=== PATIENT | female | born 1995 | race Caucasian/White ===

== ENCOUNTER 2018-07-14 18:06 | Inpatient (IN) | payer MEDICAID ==
[~2018-07-14] VITALS: Ht 157.5 cm; Wt 62.0 kg
[2018-07-14] MEDS ORDERED: ONDANSETRON 4 MG INJ IV STA (18:35)
[2018-07-14] MEDS ORDERED: SOD CHLORIDE 0.9% 1,000 ML IV STA (18:35)
[2018-07-14] MEDS ORDERED: ACETAMINOPHEN 325 MG TAB PO ONE (19:00)
[2018-07-14] MEDS ORDERED: NITROFURANTOIN (SR) 100 MG CAP PO ONE (20:30)
[2018-07-14] MEDS ORDERED: SOD CHLORIDE 0.9% 1,000 ML IV ONE (20:30)
[2018-07-14] MEDS ORDERED: PIPER-TAZO 3.375 GM IV (PMX) 100 ML IVPB ONE (22:00)
--- NOTE | 2018-07-14 22:29 | HP ---
Date/Time of Note Date/Time of Note DATE: 07/14/18 TIME: 22:28 Assessment/Plan VTE Prophylaxis SCD applied (from Nsg): Yes Pharmacological prophylaxis: NA/contraindicated Pharm contraindication: low risk/ambulating Lines/Catheters IV Catheter Type (from Nrsg): Saline Lock Assessment/Plan Hospital Course This is a 22-year-old female being admitted to the [facility] floor for: #1 Severe sepsis: Secondary to pneumonia and/or possible UTI/pyelonephritis. Chest x-ray shows patchy left lower lobe infiltrate. Patient does have some mild left-sided CVA tenderness however urinalysis is negative. At the current time will treat with Zosyn IV every 6 hours. Will await culture results. Trend lactic acid levels initial was 2.5 #2 metabolic acidosis: Secondary to underlying sepsis/pneumonia. IV fluid hydration at the current time, IV antibiotics. We will continue to monitor closely. #3 Mild transaminitis: Mild elevation in patient's liver function test. This could be secondary to . Right upper quadrant ultrasound: 1 cm polyp versus adherent stone within the gallbladder. No signs of any acute cholecystitis. Continue to monitor. #4 IUP:Single live intrauterine gestation of 17 weeks 1 day by ultrasound criteria. Continue prenatals, MEDIA PROFESSIONAL has been consulted. #5 DVT GI prophylaxis: SCDs, no GI prophylaxis indicated Further treatment strategy will be implemented as per the clinical course. Result Diagram: 07/14/18191107/14/181911 Results 24hrs Laboratory Tests Test 07/14/18 18:58 07/14/18 19:12 07/14/18 21:08 POC Venous Lactate 2.5 *H White Blood Count 17.9 H Red Blood Count 3.53 L Hemoglobin 11.3 L Hematocrit 32.4 L Mean Corpuscular Volume 91.8 Mean Corpuscular Hemoglobin 32.0 Mean Corpuscular 34.9 Hemoglobin Concent Red Cell Distribution Width 12.1 Platelet Count 237 Mean Platelet Volume 9.8 Immature Granulocytes % 1.300 H Neutrophils % 87.3 H Lymphocytes % 5.9 L Monocytes % 5.1 Eosinophils % 0.1 Basophils % 0.3 Nucleated Red Blood Cells % 0.0 Immature Granulocytes # 0.230 H Neutrophils # 15.6 H Lymphocytes # 1.1 Monocytes # 0.9 Eosinophils # 0.0 Basophils # 0.1 Nucleated Red Blood Cells # 0.0 Urine Color YELLOW Urine Clarity CLEAR Urine pH 8.0 Urine Specific [place] 1.015 Urine Ketones NEGATIVE Urine Nitrite NEGATIVE Urine Bilirubin NEGATIVE Urine Urobilinogen NEGATIVE Urine Leukocyte Esterase NEGATIVE Urine Hemoglobin NEGATIVE Urine Glucose NEGATIVE Urine Total Protein NEGATIVE Sodium Level 137 Potassium Level 3.4 L Chloride Level 109 Carbon Dioxide Level 17 L Anion Gap 11 Blood Urea Nitrogen 6 L Creatinine 0.53 Est Glomerular Filtrat > 60 Rate mL/min Glucose Level 98 Calcium Level 9.2 Total Bilirubin 0.2 Direct Bilirubin 0.00 Indirect Bilirubin 0.2 Aspartate Amino 60 H Transf (AST/SGOT) Alanine 88 H Aminotransferase (ALT/SGPT) Alkaline Phosphatase 75 Total Protein 6.6 Albumin 3.5 Globulin 3.10 Albumin/Globulin Ratio 1.12 Lipase 37 Blood Gas Specimen Source Blood arterial Arterial Blood Date Drawn 07/14/2018 9:27:00 PM Arterial Blood pH 7.534 H (Temp corrected) Arterial Blood pCO2 19.8 L (Temp correct) Arterial Blood pO2 119.6 H (Temp corrected) Arterial Blood HCO3 16.3 L Arterial Blood Base Excess -4.1 L Arterial Blood 98.3 H Oxygen Saturation Bijan Test ACCEPTAB Arterial Blood Gas Right Radial Puncture Site Arterial 0.3 Blood Carboxyhemoglobin Arterial Blood Methemoglobin 0.4 Blood Gas A-a O2 6.4 L Differential Oxyhemoglobin Percent 97.6 Blood Gas Temperature 37.0 Blood Gas Modality ROOM AIR FiO2 21.0 Blood Gas Notified Whom Irene Crockett Blood Gas Notified Time 07/14/2018 9:37:54 PM HPI/ROS Admit Date/Time Admit Date/Time Hx of Present Illness Chief complaint: fever, body pain times 1 day This is a 22-year-old woman complains of back pain, tactile fever, mild cough times 1 day. She states her back pain is mostly to the left flank and is nonex ertional nonradiating. She is 17 weeks by dates and previously normal ultrasound. She does report that she is also for a slight sore throat. She has had a cough. She denies any dysuria. She reported a temperature of approximately 100 at home. She denies any contractions or vaginal bleeding. no chest pain or shortness of breath, no headache or blurry vision, no neck pain or stiffness. Allergies: Cephalexin Medications: ROS Const: As per HPI Eyes : No pain discharge or redness or change in visual acuity ENT: As per HPI Respiratory: As per HPI Cardiovascular: No chest pain, palpitation, PND, or edema GI : no change in appetite, abdominal pain, nausea, vomiting, diarrhea, constipation, or change in the color his stool Genitourinary: As per HPI Musculoskeletal: No joint pain, back pain, neck pain, restricted range of motion in neck or joints Skin: No rash, bruising or hives Neuro: No headache, dizziness, syncope, seizure, focal weakness Endocrine: No polyuria, polydipsia, temperature intolerance Psych: No hallucination, depression, anxiety or suicidal ideation PMH/Family/Social Past Medical History Medical History: no pertinent history Coded Allergies: cephalexin (Verified Allergy, Unknown, 07/14/18) Past Surgical History Past Surgical Hx: no surgical history Family History Significant Family History: no pertinent family hx Social History Alcohol Use: none Smoking Status: Never smoker Drug Use: none Exam/Review of Systems Vital Signs Vitals Vital Signs Date Temp Pulse Resp B/P (MAP) Pulse Ox O2 O2 Flow FiO2 Time Delivery Rate 07/14/18 101.0 123 19 115/57 97 18:08 (76) Exam Exam General: Patient currently sitting in the bed in no acute distress HEENT: Atraumatic, normocephalic. The pupils are equal, round and reactive. Extraocular motor are intact Neck: Supple with full range of motion. No rigidity or meningismus Chest: Nontender Lungs: Clear to auscultation bilaterally no crackles rales or wheezing, nonlabored breathing, dry cough Heart: Normal S1-S2, Regular rhythm and rate. No murmur, S3, or S4 Abdomen: Soft , nontender, nondistended , bowel sounds are present. No guarding no rebound tenderness , No masses or organomegaly. No costovertebral temporal an gle mass Genitourinary: Mild left-sided CVA tenderness to palpation Extremities: Normal to inspection, no edema no cyanosis Neurologic: Normal mental status, speech normal, cranial nerves II through XII are intact, motor and sensory are intact, no focal weakness Additional Comments xzPROCEDURE: XR Chest. CLINICAL INDICATION: chest pain TECHNIQUE: Single frontal view of the chest was obtained COMPARISON: None FINDINGS: The heart and mediastinum are within normal limits. There is a mild patchy left lower lobe infiltrate. There is no pleural effusion or pneumothorax. There is a metallic structure overlying the right upper chest, possibly external to the patient. RPTAT: AA IMPRESSION: Metallic structure overlying the right upper chest, possibly external to the patient. Mild patchy left lower lobe infiltrate. .Josesito Phillips MD, MD Date Time Electronically viewed and signed by .Josesito Phillips MD, MD on 07/14/2018 21:34 .S/ CC: RANDY JOHNSON [id number] PROCEDURE: US Abdomen. CLINICAL INDICATION: Flank pain TECHNIQUE: Multiple real-time images were acquired of the patient's right upper quadrant abdomen and retroperitoneum utilizing a high resolution transducer. COMPARISON: None FINDINGS: The liver demonstrates normal echogenicity. The liver is normal in size and no focal solid lesions are seen. The liver measures 13.9 cm in length. The portal vein is patent with normal direction of flow. No intrahepatic biliary dilatation is seen. There is a 1 cm echogenic structure within the gallbladder, suspicious for a polyp versus adherent stone. There is no pericholecystic fluid or gallbladder wall thickening. The common bile duct measures 3 mm in maximal dimension. The pancreas is not well seen due to overlying bowel gas. No free fluid is identified. The right kidney is normal in size, and demonstrate normal echogenicity and cortical thickness. The right kidney measures 10 cm in long dimension. There is mild right-sided hydronephrosis. There are no kidney stones. The left kidney is normal in size with normal echogenicity and cortical thickness. The left kidney measures 11.2 cm in length. There is no evidence of left-sided hydronephrosis. RPTAT: AA IMPRESSION: 1 cm polyp versus adherent stone within the gallbladder. Mild right-sided hydronephrosis. .Josesito Phillips MD, MD Date Time Electronically viewed and signed by .Josesito Phillips MD, MD on 07/14/2018 21:13 .S/ CC: ROJELIO CURRY MD [id number] PROCEDURE: US OB. CLINICAL INDICATION: Flank pain TECHNIQUE: Multiple sonographic images of the pelvis and gravid uterus were obtained. The images were reviewed on a PACS workstation. COMPARISON: No prior studies are available for comparison. FINDINGS: Gestation: Single live intrauterine gestation. Cardiac activity: 154 beats per minute. Presentation: Vertex. Placenta: Location: Anterior. Appearance: No previa or abruption. MVP = 3.1 cm Measurements: BPD = 3.6 cm, 17 weeks and 0 days HC = 13.6 cm, 17 weeks and 1 day AC = 11.4 cm, 17 weeks and 1 day FL = 2.3 cm, 17 weeks and 0 days Gestational Age: AUA estimated gestational age: 17 weeks 1 day LMP estimated gestational age: 16 weeks 6 days AUA estimated date of delivery: 12/21/18 The EFW = 181 g, 59.7%ile based on LMP age. RPTAT: AA IMPRESSION: Single live intrauterine gestation of 17 weeks 1 day by ultrasound criteria. .Josesito Phillips MD, MD Date Time Electronically viewed and signed by .Josesito Phillips MD, on 07/14/2018 21:31 .S/ CC: ROJELIO CURRY MD [id number] RANDY JOHNSON Jul 14, 2018 22:29
[2018-07-14] MEDS ORDERED: POTASSIUM CHLORIDE (SR) 20 MEQ TAB PO STA (23:41)
[2018-07-15] MEDS ORDERED: NACL 0.9% 3 ML SYG IV SCH
[2018-07-15] MEDS ORDERED: ONDANSETRON 4 MG TAB PO PRN
[2018-07-15] MEDS ORDERED: BISACODYL (EC) 5 MG TAB PO PRN
--- NOTE | 2018-07-15 00:02 | ERD ---
ER Documentation Chief Complaint Chief Complaint fever with body pain x today 17 weeks HPI 22-year-old woman complains of back pain, tactile fever, mild cough times 1 day. She states her back pain is mostly to the left flank and is nonexertional nonradiating. She is 17 weeks by dates and previously normal ultra sound. She denies dysuria, no vaginal bleeding, no chest pain or shortness of breath, no headache or blurry vision, no neck pain or stiffness. ROS All systems reviewed and are negative except as per history of present illness. Allergies Allergies: Coded Allergies: cephalexin (Verified Allergy, Unknown, 07/14/18) PMhx/Soc Medical and Surgical Hx: pt denies Medical Hx, pt denies Surgical Hx Hx Alcohol Use: No Hx Substance Use: No Hx Tobacco Use: No Smoking Status: Never smoker FmHx Family History: No diabetes Physical Exam Vitals Vital Signs Date Temp Pulse Resp B/P (MAP) Pulse Ox O2 O2 Flow FiO2 Time Delivery Rate 07/14/18 99.9 105 18 103/64 100 Room Air 23:44 (77) 07/14/18 99.9 86 18 93/56 (68) 100 Room Air 21:54 07/14/18 101.0 123 19 115/57 97 18:08 (76) Physical Exam GENERAL: Well-developed, well-nourished, febrile HEENT: Moist mucous membranes, pink conjunctiva, no cervical spine tenderness or step-off deformities, no goiter, no jaundice or icterus, extraocular movements intact without pain. No submandibular induration, and no pharyngeal erythema NEURO: Alert and oriented 3, cranial nerves II through XII intact bilaterally, pupils equal round reactive to light, no focal deficits or facial asymmetry, sensation intact distally Strength 5/5 in upper and lower extremities bilaterally CARDIAC: Tachycardic, no murmurs rubs or gallops LUNGS: Clear bilaterally no wheezing crackles or stridor ABDOMEN: Soft nontender, no guarding, no rigidity, no rebound, no psoas sign no obturator sign. SKIN: Warm and dry to touch, no abrasions, contusions, or hematomas, no lacerations, no ecchymosis, no target lesions, and without ulcers EXTREMITIES: No clubbing cyanosis or edema, calves are bilaterally symmetrical, no Homans sign, no popliteal cord sign. Distal pulses equal and bilateral PSYCH: Normal affect without agitation or irritability Result Diagram: 07/14/18191107/14/181911 Results 24 hrs Laboratory Tests Test 07/14/18 18:58 07/14/18 19:12 07/14/18 21:08 07/14/18 22:48 POC Venous 2.5 mmol/L Lactate White Blood 17.9 10^3/ul Count Red Blood Count 3.53 10^6/ul Hemoglobin 11.3 g/dl Hematocrit 32.4 % Mean Corpuscular 91.8 fl Volume Mean Corpuscular 32.0 pg Hemoglobin Mean Corpuscular 34.9 g/dl Hemoglobin Sarai nt Red Cell 12.1 % Distribution Width Platelet Count 237 10^3/UL Mean Platelet 9.8 fl Volume Immature 1.300 % Granulocytes % Neutrophils % 87.3 % Lymphocytes % 5.9 % Monocytes % 5.1 % Eosinophils % 0.1 % Basophils % 0.3 % Nucleated Red 0.0 /100WBC Blood Cells % Immature 0.230 10^3/ul Granulocytes # Neutrophils # 15.6 10^3/ul Lymphocytes # 1.1 10^3/ul Monocytes # 0.9 10^3/ul Eosinophils # 0.0 10^3/ul Basophils # 0.1 10^3/ul Nucleated Red 0.0 10^3/ul Blood Cells # Urine Color YELLOW Urine Clarity CLEAR Urine pH 8.0 Urine Specific 1.015 [place] Urine Ketones NEGATIVE mg/dL Urine Nitrite NEGATIVE mg/dL Urine Bilirubin NEGATIVE mg/dL Urine NEGATIVE mg/dL Urobilinogen Urine Leukocyte NEGATIVE Janae/ul Esterase Urine Hemoglobin NEGATIVE mg/dL Urine Glucose NEGATIVE mg/dL Urine Total NEGATIVE mg/dl Protein Sodium Level 137 mmol/L Potassium Level 3.4 mmol/L Chloride Level 109 mmol/L Carbon Dioxide 17 mmol/L Level Anion Gap 11 Blood Urea 6 mg/dl Nitrogen Creatinine 0.53 mg/dl Est Glomerular > 60 mL/min Filtrat Rate mL/min Glucose Level 98 mg/dl Calcium Level 9.2 mg/dl Total Bilirubin 0.2 mg/dl Direct Bilirubin 0.00 mg/dl Indirect 0.2 mg/dl Bilirubin Aspartate Amino 60 IU/L Transf (AST/SGOT ) Alanine 88 IU/L Aminotransferase (ALT/SGPT) Alkaline 75 IU/L Phosphatase Total Protein 6.6 g/dl Albumin 3.5 g/dl Globulin 3.10 g/dl Albumin/Globulin 1.12 Ratio Lipase 37 U/L Blood Gas Blood arterial Specimen Source Arterial Blood 07/14/2018 9:27: Date Drawn 00 PM Arterial Blood 7.534 pH (Temp corrected) Arterial Blood 19.8 mmhg pCO2 (Temp correct) Arterial Blood 119.6 mmHG pO2 (Temp corrected) Arterial Blood 16.3 mmol/L HCO3 Arterial Blood -4.1 mmol/L Base Excess Arterial Blood 98.3 mmHG Oxygen Saturatio n Bijan Test ACCEPTAB Arterial Blood Right Radial Gas Puncture Site Arterial 0.3 % Blood Carboxyhem oglobin Arterial Blood 0.4 % Methemoglobin Blood Gas A-a O2 6.4 mmHg Differential Oxyhemoglobin 97.6 % Percent Blood Gas 37.0 C Temperature Blood Gas ROOM AIR Modality FiO2 21.0 % Blood Gas [facility] Notified Whom hchi Blood Gas 07/14/2018 9:37: Notified Time 54 PM Lactic Acid 1.1 mmol/L Level Current Medications Medications Dose Sig/Asim Start Time Status Last (Trade) Ordered Route PRN Stop Time Admin Dose Reason Admin 650 mg ONCE ONCE 07/14/18 DC 07/14/18 Acetaminophen PO 19:00 19:33 (Tylenol 07/14/18 19:01 Tab) Sodium 1,000 ml @ Q1H STAT 07/14/18 DC 07/14/18 Chloride 1,000 mls/hr IV 18:35 19:33 07/14/18 19:34 Ondansetron 4 mg ONCE STAT 07/14/18 DC HCl (Zofran IV 18:35 Inj) 07/14/18 18:36 Sodium 1,000 ml @ Q30M ONCE 07/14/18 DC 07/14/18 Chloride 2,000 mls/hr IV 20:30 20:30 07/14/18 20:59 100 mg ONCE ONCE 07/14/18 DC 07/14/18 Nitrofurantoi PO 20:30 20:30 n 07/14/18 20:31 Macrocrystals (Macrobid) Piperacillin 100 ml @ ONCE ONCE 07/14/18 DC 07/14/18 Sod/ 200 mls/hr IVPB 22:00 22:16 Tazobactam 07/14/18 22:29 Sod Potassium 40 meq ONCE STAT 07/14/18 DC Chloride PO 23:41 (Klor-Con 20) 07/14/18 23:45 IV Flush 3 ml PER 07/15/18 (NS 3 ml) PROTOCOL IV 00:00 Ondansetron 4 mg Q6H PRN 07/15/18 HCl (Zofran PO 00:00 Tab) NAUSEA/VOMITI NG 650 mg Q6H PRN 07/15/18 Acetaminophen PO .PAIN 1-3 00:00 (Tylenol OR TEMP Tab) Docusate 100 mg Q12H PRN 07/15/18 Sodium PO 00:00 (Colace) .CONSTIPATION Bisacodyl 5 mg DAILY PRN 07/15/18 (Dulcolax) PO 00:00 .CONSTIPATION Prenat 1 tab DAILY PO 07/15/18 Multivit/ 00:00 [place]/Iron/Fo lic Ac () Procedures/MDM IV line was established patient was placed on quality assurance monitor body rhythm strip revealed a sinus tachycardia at 120 bpm with upright P and T waves. Patient was febrile. Blood and urine cultures have been ordered results are pending I will follow-up. I administered 3 L normal saline IV, acetaminophen 650 mg p.o., Zofran 4 mg IV, initially treated the patient with nitrofurantoin 100 mg p.o. x1 pending UA CBC reveals a leukocytosis at 18, electrolytes were unremarkable, liver function tests normal, urinalysis negative for infection Patient's infectious symptoms have not stabilized and the patient is at risk of rapid decompensation. The patient will be admitted for careful hydration, antibiotic therapy, and infectious source control. Obstetric ultrasound was unremarkable revealing a 17-week IUP. Gallbladder ultrasound was performed revealing a polyp versus a stone although no signs of cholecystitis. 1 view chest x-ray was performed revealing early patchy left lower lobe infiltrate SEVERE SEPSIS CRITERIA: Infectious source: Nonspecific (possibly pneumonia) End organ damage indicated by: None SEPSIS MANAGEMENT Time of recognition of sepsis: Upon arrival. Time of recognition of severe sepsis: No severe sepsis at this time. Time of recognition of septic shock: No septic shock at this time. 3 HOUR BUNDLE Blood cultures x 2 before broad-spectrum antibiotics: Yes 30 ml/kg NS bolus completed Initial lactate 2.5 Repeat lactate 1.1 SEPTIC SHOCK ASSESSMENT: No lactic acid > 4.0 No persistent hypotension (SBP < 90 or 40 mmHg drop, MAP < 65) despite 30 mL/kg IV fluid bolus VOLUME REASSESSMENT FOR SEPTIC SHOCK: Reevaluation Time: 2300 Temp 99 F, pulse 100 bpm, respiratory rate 18 breaths/min, BP 120/80 Heart tachycardic and regular Lungs no crackles Skin warm & dry Cap Refill less than 2 seconds Peripheral pulses radially present PERSISTENT HYPOTENSION TREATMENT: Comfort care no Central line not Required Vasopressor started not required I considered further perfusion assessment with CVP measurement, SCVO2, bedside ultrasound volume assessment, passive leg raise, trial of further fluid bolus. And proceeded with 30 ml/kg fluid bolus of NSS, broad spectrum antibiotics, and admission. CRITICAL CARE: Critical care time 35 minutes, this was time separate from other billable procedures. Emergent fluid management while maintaining close respiratory support. Provision of immediate and broad-spectrum antibiotic therapy. Simultaneous assessment for possible sources in order to direct targeted therapy. Consideration for invasive and chemical support to prevent cardiopulmonary collapse. Critical care time is independent of procedures performed. Accepting Care Team: Current data and ongoing care discussed. Time: Time of admission Primary Provider: Hospitalist Consulting: Deferred to hospitalist team Outstanding Data: none Departure Diagnosis: Primary Impression: Second trimester Additional Impression: Sepsis Sepsis type: sepsis due to unspecified organism Qualified Codes: A41.9 - S epsis, unspecified organism Condition: ROJELIO Bland MD Jul 15, 2018 00:02
[2018-07-15 00:30] VITALS: BP 100/50; PULSE 96; RESP 16; Ht 157.5 cm; Wt 62.0 kg
[2018-07-15] MEDS: DOCUSATE SODIUM 100 MG CAP PO PRN ×2 (00:47→20:40)
[2018-07-15] MEDS: PRENATAL VITAMIN PO SCH ×2 (02:00→08:14)
[2018-07-15 02:30] VITALS: BP 109/80; PULSE 116; RESP 16
[2018-07-15] MEDS: ACETAMINOPHEN 325 MG TAB PO PRN ×2 (04:43→20:44)
[2018-07-15 07:47] VITALS: BP 97/54; PULSE 84; RESP 18
[2018-07-15] MEDS ORDERED: CEFTRIAXONE 1 GM INJ IVPB ONE (15:30)
[2018-07-15 16:06] VITALS: BP 131/55; PULSE 84; RESP 18
[2018-07-15] MEDS: DEXTROSE 5%-0.45% NACL 1,000 ML IV SCH (16:10)
[2018-07-15] MEDS: PIPER-TAZO 3.375 GM IV (PMX) 100 ML IVPB SCH ×2 (16:45→23:03)
--- NOTE | 2018-07-15 18:37 | PN ---
Date/Time of Note Date/Time of Note DATE: 07/15/18 TIME: 15:26 Assessment/Plan VTE Prophylaxis Risk score (from Nsg)>0 risk: 0 SCD applied (from Ns): Yes Pharmacological prophylaxis: NA/contraindicated Pharm contraindication: low risk/ambulating Lines/Catheters IV Catheter Type (from Nrsg): Saline Lock Assessment/Plan Hospital Course S: feels better, but still lethargic and having mild flank pain O : General: A&O x3, answering questions appropriately HEENT: NC/ AT. PERRL. EOM intact Neck: supple CVS: S1, S2, RRR. no murmurs. no pain on chest wall palpation Lungs: CTA b/l. no wheezing or rhonchi Abd: soft, nontender, +BS, L flank just sore Ext: moving all extremities skin: no rashes assessment and plan: 22-year-old female who presented with fever, mild cough , L sided flank vs back pain and headaches managed as follows: #1 Severe sepsis: -2/2 RTI, I think PNA is less likely and URI more likely -continue abx for now -rapid strep, influenza and urine culture negative so far -patient has cephalosporin allergy and floroquinolones and aminoglycosides are not exactly safe in , so will continue zosyn #2 Mild metabolic acidosis: improved -Secondary to underlying sepsis/pneumonia. -continue IV fluid hydration at the current time, IV antibiotics. -We will continue to monitor closely. #3 Mild transaminitis: -Mild elevation in patient's liver function test. -Secondary to . -Right upper quadrant ultrasound: 1 cm polyp versus adherent stone within the gallbladder. No signs of any acute cholecystitis. Continue to monitor. #4 IUP: -Single live intrauterine gestation of 17 weeks 1 day by ultrasound criteria. Continue prenatals, BEE PRODUCER has been consulted for BID monitoring #5 DVT GI prophylaxis: SCDs, no GI prophylaxis indicated Dispo: -continue inhouse monitoring for now and resume abx, possible d/c in am if she remains fever free. Result Diagram: 07/15/18 0435 07/15/18 0435 Results 24hrs Laboratory Tests Test 07/14/18 18:58 07/14/18 19:12 07/14/18 21:08 07/14/18 22:48 POC Venous 2.5 *H Lactate White Blood Count 17.9 H Red Blood Count 3.53 L Hemoglobin 11.3 L Hematocrit 32.4 L Mean Corpuscular 91.8 Volume Mean Corpuscular 32.0 Hemoglobin Mean Corpuscular 34.9 Hemoglobin Concen t Red Cell 12.1 Distribution Width Platelet Count 237 Mean Platelet 9.8 Volume Immature 1.300 H Granulocytes % Neutrophils % 87.3 H Lymphocytes % 5.9 L Monocytes % 5.1 Eosinophils % 0.1 Basophils % 0.3 Nucleated Red 0.0 Blood Cells % Immature 0.230 H Granulocytes # Neutrophils # 15.6 H Lymphocytes # 1.1 Monocytes # 0.9 Eosinophils # 0.0 Basophils # 0.1 Nucleated Red 0.0 Blood Cells # Urine Color YELLOW Urine Clarity CLEAR Urine pH 8.0 Urine Specific 1.015 [place] Urine Ketones NEGATIVE Urine Nitrite NEGATIVE Urine Bilirubin NEGATIVE Urine NEGATIVE Urobilinogen Urine Leukocyte NEGATIVE Esterase Urine Hemoglobin NEGATIVE Urine Glucose NEGATIVE Urine Total NEGATIVE Protein Sodium Level 137 Potassium Level 3.4 L Chloride Level 109 Carbon Dioxide 17 L Level Anion Gap 11 Blood Urea 6 L Nitrogen Creatinine 0.53 Est Glomerular > 60 Filtrat Rate mL/min Glucose Level 98 Calcium Level 9.2 Total Bilirubin 0.2 Direct Bilirubin 0.00 Indirect 0.2 Bilirubin Aspartate Amino 60 H Transf (AST/SGOT) Alanine 88 H Aminotransferase (ALT/SGPT) Alkaline 75 Phosphatase Total Protein 6.6 Albumin 3.5 Globulin 3.10 Albumin/Globulin 1.12 Ratio Lipase 37 Blood Gas Blood arterial Specimen Source Arterial Blood 07/14/2018 9:27:0 Date Drawn 0 PM Arterial Blood pH 7.534 H (Temp corrected) Arterial Blood 19.8 L pCO2 (Temp correct) Arterial Blood 119.6 H pO2 (Temp corrected) Arterial Blood 16.3 L HCO3 Arterial Blood -4.1 L Base Excess Arterial Blood 98.3 H Oxygen Saturation [place] Test ACCEPTAB Arterial Blood Right Radial Gas Puncture Site Arterial 0.3 Blood Carboxyhemo globin Arterial Blood 0.4 Methemoglobin Blood Gas A-a O2 6.4 L Differential Oxyhemoglobin 97.6 Percent Blood Gas 37.0 Temperature Blood Gas ROOM AIR Modality FiO2 21.0 Blood Gas Irene Villarreal Notified Whom chi Blood Gas 07/14/2018 9:37:5 Notified Time 4 PM Lactic Acid Level 1.1 Test 07/15/18 04:35 White Blood Count 15.8 H Red Blood Count 3.44 L Hemoglobin 11.0 L Hematocrit 32.3 L Mean Corpuscular 93.9 Volume Mean Corpuscular 32.0 Hemoglobin Mean Corpuscular 34.1 Hemoglobin Concen t Red Cell 12.1 Distribution Width Platelet Count 224 Mean Platelet 9.9 Volume Immature 1.600 H Granulocytes % Neutrophils % 83.8 H Lymphocytes % 7.6 L Monocytes % 6.3 Eosinophils % 0.4 Basophils % 0.3 Nucleated Red 0.0 Blood Cells % Immature 0.260 H Granulocytes # Neutrophils # 13.3 H Lymphocytes # 1.2 Monocytes # 1.0 H Eosinophils # 0.1 Basophils # 0.1 Nucleated Red 0.0 Blood Cells # Sodium Level 139 Potassium Level 3.8 Chloride Level 111 H Carbon Dioxide 19 L Level Anion Gap 9 Blood Urea 3 L Nitrogen Creatinine 0.46 Est Glomerular > 60 Filtrat Rate mL/min Glucose Level 90 Hemoglobin A1c 4.6 Calcium Level 8.5 Magnesium Level 1.8 Total Bilirubin 0.1 L Direct Bilirubin 0.00 Indirect 0.1 Bilirubin Aspartate Amino 48 H Transf (AST/SGOT) Alanine 85 H Aminotransferase (ALT/SGPT) Alkaline 72 Phosphatase Total Protein 6.2 Albumin 3.0 L Globulin 3.20 Albumin/Globulin 0.93 Ratio Triglycerides 76 Level Cholesterol Level 160 LDL Cholesterol, 84 Calculated HDL Cholesterol 61 Cholesterol/HDL 2.6 Ratio Thyroid 0.677 Stimulating Hormone (TSH) Beta HCG, 075[address].0 Quantitative Exam/Review of Systems Exam Vitals Vital Signs Date Temp Pulse Resp B/P (MAP) Pulse Ox O2 O2 Flow FiO2 Time Delivery Rate 07/15/18 98.3 84 18 131/55 96 16:06 (80) 07/14/18 Room Air 23:44 Intake and Output 07/14/18 07/14/18 07/15/18 1515:00 23:00 07:00 IntakeIntake Total 2500 ml BalanceBalance 2500 ml Results Results 24hrs Laboratory Tests Test 07/14/18 18:58 07/14/18 19:12 07/14/18 21:08 07/14/18 22:48 POC Venous 2.5 *H Lactate White Blood Count 17.9 H Red Blood Count 3.53 L Hemoglobin 11.3 L Hematocrit 32.4 L Mean Corpuscular 91.8 Volume Mean Corpuscular 32.0 Hemoglobin Mean Corpuscular 34.9 Hemoglobin Concen t Red Cell 12.1 Distribution Width Platelet Count 237 Mean Platelet 9.8 Volume Immature 1.300 H Granulocytes % Neutrophils % 87.3 H Lymphocytes % 5.9 L Monocytes % 5.1 Eosinophils % 0.1 Basophils % 0.3 Nucleated Red 0.0 Blood Cells % Immature 0.230 H Granulocytes # Neutrophils # 15.6 H Lymphocytes # 1.1 Monocytes # 0.9 Eosinophils # 0.0 Basophils # 0.1 Nucleated Red 0.0 Blood Cells # Urine Color YELLOW Urine Clarity CLEAR Urine pH 8.0 Urine Specific 1.015 [place] Urine Ketones NEGATIVE Urine Nitrite NEGATIVE Urine Bilirubin NEGATIVE Urine NEGATIVE Urobilinogen Urine Leukocyte NEGATIVE Esterase Urine Hemoglobin NEGATIVE Urine Glucose NEGATIVE Urine Total NEGATIVE Protein Sodium Level 137 Potassium Level 3.4 L Chloride Level 109 Carbon Dioxide 17 L Level Anion Gap 11 Blood Urea 6 L Nitrogen Creatinine 0.53 Est Glomerular > 60 Filtrat Rate mL/min Glucose Level 98 Calcium Level 9.2 Total Bilirubin 0.2 Direct Bilirubin 0.00 Indirect 0.2 Bilirubin Aspartate Amino 60 H Transf (AST/SGOT) Alanine 88 H Aminotransferase (ALT/SGPT) Alkaline 75 Phosphatase Total Protein 6.6 Albumin 3.5 Globulin 3.10 Albumin/Globulin 1.12 Ratio Lipase 37 Blood Gas Blood arterial Specimen Source Arterial Blood 07/14/2018 9:27:0 Date Drawn 0 PM Arterial Blood pH 7.534 H (Temp corrected) Arterial Blood 19.8 L pCO2 (Temp correct) Arterial Blood 119.6 H pO2 (Temp corrected) Arterial Blood 16.3 L HCO3 Arterial Blood -4.1 L Base Excess Arterial Blood 98.3 H Oxygen Saturation [place] Test ACCEPTAB Arterial Blood Right Radial Gas Puncture Site Arterial 0.3 Blood Carboxyhemo globin Arterial Blood 0.4 Methemoglobin Blood Gas A-a O2 6.4 L Differential Oxyhemoglobin 97.6 Percent Blood Gas 37.0 Temperature Blood Gas ROOM AIR Modality FiO2 21.0 Blood Gas Irene Villarreal Notified Whom chi Blood Gas 07/14/2018 9:37:5 Notified Time 4 PM Lactic Acid Level 1.1 Test 07/15/18 04:35 White Blood Count 15.8 H Red Blood Count 3.44 L Hemoglobin 11.0 L Hematocrit 32.3 L Mean Corpuscular 93.9 Volume Mean Corpuscular 32.0 Hemoglobin Mean Corpuscular 34.1 Hemoglobin Concen t Red Cell 12.1 Distribution Width Platelet Count 224 Mean Platelet 9.9 Volume Immature 1.600 H Granulocytes % Neutrophils % 83.8 H Lymphocytes % 7.6 L Monocytes % 6.3 Eosinophils % 0.4 Basophils % 0.3 Nucleated Red 0.0 Blood Cells % Immature 0.260 H Granulocytes # Neutrophils # 13.3 H Lymphocytes # 1.2 Monocytes # 1.0 H Eosinophils # 0.1 Basophils # 0.1 Nucleated Red 0.0 Blood Cells # Sodium Level 139 Potassium Level 3.8 Chloride Level 111 H Carbon Dioxide 19 L Level Anion Gap 9 Blood Urea 3 L Nitrogen Creatinine 0.46 Est Glomerular > 60 Filtrat Rate mL/min Glucose Level 90 Hemoglobin A1c 4.6 Calcium Level 8.5 Magnesium Level 1.8 Total Bilirubin 0.1 L Direct Bilirubin 0.00 Indirect 0.1 Bilirubin Aspartate Amino 48 H Transf (AST/SGOT) Alanine 85 H Aminotransferase (ALT/SGPT) Alkaline 72 Phosphatase Total Protein 6.2 Albumin 3.0 L Globulin 3.20 Albumin/Globulin 0.93 Ratio Triglycerides 76 Level Cholesterol Level 160 LDL Cholesterol, 84 Calculated HDL Cholesterol 61 Cholesterol/HDL 2.6 Ratio Thyroid 0.677 Stimulating Hormone (TSH) Beta HCG, [address].0 Quantitative Medications Medication Current Medications IV Flush (NS 3 ml) 3 ml PER PROTOCOL IV Last administered on 07/15/18at 00:45; Admin Dose 3 ML; Start 07/15/18 at 00:00 Ondansetron HCl (Zofran Tab) 4 mg Q6H PRN PO NAUSEA/VOMITING; Start 07/15/18 at 00:00 Acetaminophen (Tylenol Tab) 650 mg Q6H PRN PO .PAIN 1-3 OR TEMP Last administered on 07/15/18at 04:43; Admin Dose 650 MG; Start 07/15/18 at 00:00 Docusate Sodium (Colace) 100 mg Q12H PRN PO .CONSTIPATION Last administered on 07/15/18at 00:47; Admin Dose 100 MG; Start 07/15/18 at 00:00 Bisacodyl (Dulcolax) 5 mg DAILY PRN PO .CONSTIPATION; Start 07/15/18 at 00:00 Prenat Multivit/ [place]/Iron/Folic Ac () 1 tab DAILY PO Last administered on 07/15/18at 08:14; Admin Dose 1 TAB; Start 07/15/18 at 00:00 Dextrose/Sodium Chloride 1,000 ml @ 75 mls/hr [id number] IV Last administered on 07/15/18at 16:10; Admin Dose 75 MLS/HR; Start 07/15/18 at 15:30 Piperacillin Sod/ Tazobactam Sod 100 ml @ 200 mls/hr Q8 IVPB Last administered on 07/15/18at 16:45; Admin Dose 200 MLS/HR; Start 07/15/18 at 16:30 MECCA LEVIN Jul 15, 2018 18:37
[2018-07-15 20:02] VITALS: BP 87/54; PULSE 75; RESP 18
[2018-07-15 20:40] VITALS: BP 99/56; PULSE 68
[2018-07-16 02:26] VITALS: BP 85/52; PULSE 66; RESP 18
[2018-07-16 02:40] VITALS: BP 92/53; PULSE 64
[2018-07-16] MEDS: DEXTROSE 5%-0.45% NACL 1,000 ML IV SCH ×2 (04:50→06:07)
[2018-07-16] MEDS: PIPER-TAZO 3.375 GM IV (PMX) 100 ML IVPB SCH ×2 (06:04→13:04)
[2018-07-16 07:21] VITALS: BP 92/56; PULSE 91; RESP 20
[2018-07-16] MEDS: PRENATAL VITAMIN PO SCH (08:08)
--- NOTE | 2018-07-16 09:49 | DS ---
Date/Time of Note Date/Time of Note DATE: 07/16/18 TIME: 09:48 Discharge Summary Admission/Discharge Info Admit Date/Time Jul 14, 2018 at 23:17 Discharge Date/Time Discharge Diagnosis 22-year-old female who presented with fever, mild cough , L sided flank vs back pain and headaches managed as follows: #1 Severe sepsis: -2/2 RTI, #2 Mild metabolic acidosis: resolved #3 Mild transaminitis: -Mild elevation in patient's liver function test. -Secondary to . -Right upper quadrant ultrasound: 1 cm polyp versus adherent stone within the gallbladder. No signs of any acute cholecystitis. Continue to monitor. #4 IUP: -Single live intrauterine gestation of 17 weeks 1 day by ultrasound criteria. Continue prenatals, . Patient Condition: Stable Consults Obs/ Gynecology: Laborist . Hospital Course 22 yo F who presented with fever, cough and back pain on the left side versus flank pain who was managed for sepsis. This is likely secondary to an upper respiratory infection and had pain from coughing. She was also found to be with mild metabolic acidosis secondary to sepsis. She was admitted and treated with empiric antibiotics and IV fluids and has done very well. She was found to have a mild transaminitis and a gallbladder ultrasound did show a polyp versus an adherent stone in her gallbladder but she had no signs of acute cholecystitis. Transaminase levels remained steady making it more likely that it was secondary to and less likely secondary to choledocholithiasis. Also her bilirubin levels were normal and her alkaline phosphatase levels were also normal. At this time she has been evaluated by myself and is stable for discharge. Her baby was monitored twice a day throughout her hospitalization without incident. Home Meds Active Scripts Amoxicillin/Potassium Clav (Amox-Clav 875-125 mg Tablet) 875-125 mg Tab, 1 TAB PO BID for 3 Days, #6 TAB Prov:BRIANA LEVINIMTIAZ M. 07/16/18 Docusate Sodium* (Colace*) 100 Mg Capsule, 100 MG PO BID, #60 CAP 3 Refills Prov:POONAMBRIANA AlonzoJASPERO M. 07/16/18 Vit No.130/Iron/FA ( Tablet) 1 Each Tablet, 1 TAB PO DAILY, #30 TAB 6 Refills Prov:BRIANA LEVINIMTIAZ Boyd. 07/16/18 Follow-up Plan routine care . Primary Care Provider Not On Staff Doctor Time spent on discharge: > 30 minutes Pending Labs Laboratory Tests Test 07/16/18 04:47 White Blood Count 9.5 10^3/ul (4.8-10.8) Red Blood Count 3.29 10^6/ul (4.20-5.40) Hemoglobin 10.5 g/dl (12.0-16.0) Hematocrit 31.3 % (37.0-47.0) Mean Corpuscular Volume 95.1 fl (82.0-101.0) Mean Corpuscular Hemoglobin 31.9 pg (29.0-33.0) Mean Corpuscular Hemoglobin Concent 33.5 g/dl (32.0-37.0) Red Cell Distribution Width 12.3 % (11.5-14.5) Platelet Count 232 10^3/UL (140-415) Mean Platelet Volume 9.9 fl (7.4-10.4) Immature Granulocytes % 3.500 % (0.001-0.429) Neutrophils % 66.8 % (39.0-77.0) Lymphocytes % 19.5 % (15.0-51.0) Monocytes % 7.4 % (0.0-11.0) Eosinophils % 2.2 % (0.0-7.0) Basophils % 0.6 % (0.0-2.0) Nucleated Red Blood Cells % 0.0 /100WBC (0.0-0.0) Immature Granulocytes # 0.330 10^3/ul (0.0-0.031) Neutrophils # 6.4 10^3/ul (1.6-7.5) Lymphocytes # 1.9 10^3/ul (0.8-2.9) Monocytes # 0.7 10^3/ul (0.3-0.9) Eosinophils # 0.2 10^3/ul (0.0-0.5) Basophils # 0.1 10^3/ul (0.0-0.1) Nucleated Red Blood Cells # 0.0 10^3/ul (0.0-0.0) Sodium Level 139 mmol/L (135-144) Potassium Level 3.6 mmol/L (3.5-5.1) Chloride Level 111 mmol/L (97-110) Carbon Dioxide Level 23 mmol/L (21-31) Anion Gap 5 (5-13) Blood Urea Nitrogen 5 mg/dl (7-20) Creatinine 0.50 mg/dl (0.44-1.00) Est Glomerular Filtrat Rate mL/min > 60 mL/min (>60) Glucose Level 86 mg/dl (70-220) Calcium Level 8.5 mg/dl (8.4-10.2) MECCA LEVIN Jul 16, 2018 09:49
[2018-07-16] MEDS ORDERED: AMOX1TAB10 PO (09:54)
[2018-07-16] MEDS ORDERED: PREN1TAB71 PO (09:54)
[2018-07-16] MEDS ORDERED: DOCU-144 PO (09:54)
--- NOTE | 2018-07-16 09:55 | PDOCDIS ---
Discharge Instructions DIAGNOSIS Discharge Diagnosis 22-year-old female who presented with fever, mild cough , L sided flank vs back pain and headaches managed as follows: #1 Severe sepsis: -2/2 RTI, #2 Mild metabolic acidosis: resolved #3 Mild transaminitis: -Mild elevation in patient's liver function test. -Secondary to . -Right upper quadrant ultrasound: 1 cm polyp versus adherent stone within the gallbladder. No signs of any acute cholecystitis. Continue to monitor. #4 IUP: -Single live intrauterine gestation of 17 weeks 1 day by ultrasound criteria. Continue prenatals, . CONDITION [id number] Patient Condition: [id number] Stable HOME CARE INSTRUCTIONS: [id number] Diet Instructions: [id number] Regular ACTIVITY: [id number] Activity Restrictions: [id number] Slowly Increase Activity Rest between Activity FOLLOW UP/APPOINTMENTS Follow-up Plan 1. followup with routine care 2. Review your medication list with your nurse before leaving and if you need new prescriptions please let your nurse know. 3. I may have made changes to your home medications or given you new prescriptions, please let your primary doctor know as well. 4. Stay compliant with your medications and report any side effects to your PCP or pharmacist. 5. Return to the ER if you have any concerns and cannot reach your doctors or call your insurance company, they usually have a nurse that can help you. . MECCA LEVIN Jul 16, 2018 09:55
== END 2018-07-16 15:20 | disposition home or self-care (01) | DRG 831 ==
LOC: E/R 18:06 → 2NE 23:17
PROVIDERS: ADMIT Family Medicine; ATTEND Family Medicine
DX: O98.812 Other maternal infectious and parasitic diseases complicating pregnancy, second trimester (principal); A41.9 Sepsis, unspecified organism; R65.20 Severe sepsis without septic shock; E87.2 Acidosis; B96.89 Other specified bacterial agents as the cause of diseases classified elsewhere; Z3A.17 17 weeks gestation of pregnancy; R74.0 Nonspecific elevation of levels of transaminase and lactic acid dehydrogenase [LDH]; J06.9 Acute upper respiratory infection, unspecified; K82.4 Cholesterolosis of gallbladder; O99.612 Diseases of the digestive system complicating pregnancy, second trimester
CPT/HCPCS: 36415; 36600; 71045; 76705; 76805; 80048; 80053; 80061; 81003; 82803; 83036; 83605; 83690; 83735; 84443; 84702; 85025; 87040; 87086; 87400; 87880; 96361; 96374; J2405; J2543; J7030; J7042

== ENCOUNTER 2018-09-03 08:43 | Outpatient (CLI) | payer BC ==
[~2018-09-03] VITALS: Ht 157.5 cm; Wt 66.7 kg
[~2018-09-03 08:43] MED LIST: AMOX1TAB10 PO; DOCU-144 PO; PREN1TAB71 PO
[2018-09-03 09:20] VITALS: Ht 157.5 cm; Wt 66.7 kg
[2018-09-03 09:21] VITALS: BP 107/60; PULSE 82; RESP 18
--- NOTE | 2018-09-03 10:42 | TRIAGE ---
OB Triage Datetime Report Generated by CPN: 09/03/2018 10:42 Datetime: 09/03/2018 10:24 Stage of : OB Triage Datetime: 09/03/2018 09:56 Labor Evaluation Frequency: 0 Monitor Mode: External Pattern: Normal: <= 5 Contractions in 10 Minutes Resting Tone [place]: Relaxed Heart Rate FHR Baseline Rate: 145 Monitor Mode: External US Variability: Moderate 6-25 bpm Accelerations: 10X10 Decelerations: None Category: Category I Pain Assessment Pain Scale: 1 Pain Presence: Constant Pain Type: Ache Pain Location: Back Pain Goal: 3 Pain Relief Measures: Comfort Measures Datetime: 09/03/2018 09:15 Stage of : OB Triage Datetime: 09/03/2018 09:01 Stage of : OB Triage Assessment Type: Triage Maternal Assessment Level of Consciousness: Fully Conscious DTR's/Clonus: DTRs 2+; No Clonus Headache: Denies Blurred Vision: No Respiratory Effort: Unlabored; Regular Rhythm; Equal Expansion Breath Sounds, Left: Clear and Equal Breath Sounds, Right: Clear and Equal Nausea/Vomiting: Denies RUQ Epigastric Pain: Denies Facial Edema: None Temperature Route: Axillary Fall Risk Assessment History of Falling: (0) No Secondary Diagnosis: (0) No Ambulatory Aid: (0) Bedrest/Nurse Assist IV Therapy: (0) No Gait: (0) Normal/Bedrest/Immobile Mental Status: (0) Oriented to Own Ability Fall Score: 0 Fall Risk Score Definition: No Risk: No action required Labor Evaluation Frequency: 0 Monitor Mode: External Pattern: Normal: <= 5 Contractions in 10 Minutes Resting Tone [place]: Relaxed Heart Rate FHR Baseline Rate: 135 Monitor Mode: External US Variability: Moderate 6-25 bpm Accelerations: 10X10 Decelerations: None Category: Category I Pain Assessment Pain Scale: 1 Pain Presence: Constant Pain Type: Cramping Pain Location: Back Pain Goal: 3 Pain Relief Measures: Comfort Measures Datetime: 09/03/2018 09:00 EGA: 24.1 Datetime: 09/03/2018 08:58 Time of Arrival: 09/03/2018 08:35 Arrived By: Ambulatory Arrived From: Home Chief Complaint: C/O WAKING UP WITH SCANT BLEEDING IN MUCUS DISCHARGE, DENIES UC'S Movement: Present Contractions: Irregular Rupture of Membranes: Denies Vaginal Bleeding: Scant Vaginal Discharge: Denies Recent Sexual Intercouse: Denies Abdominal Trauma: Not Applicable Patient Complaints: Cramping Time Provider Notified: 09/03/2018 09:15 Provider Notified: amanda Initial Plan: MONITOR, cl, cbc, placenta, t_s
--- NOTE | 2018-09-03 12:02 | PREOPHP ---
DATE OF ADMISSION: 09/03/2018 HISTORY OF PRESENT ILLNESS: Ms. Sheila Mcdowell is a 22-year-old 2, para 0, EDC 01/02/2019 intrauterine at 24 weeks and 1 day gestational age, presented to triage complaining of mucu sy/reddish discharge. She reports that she had intercourse 2 days ago. She currently denies any vag inal bleeding or discharge. She denies any contractions. Her care took place at [facility]. PAST MEDICAL HISTORY: None. MEDICATIONS: vitamins. PAST SURGICAL HISTORY: None. OBSTETRICAL HISTORY: x1 missed AB. GYNECOLOGIC HISTORY: 13, regular 3 to 4 days. Denies any sexually transmitted infection. Sexually active with 1 partner. SOCIAL HISTORY: Denies any smoking, drugs or alcohol. FAMILY HISTORY: None. REVIEW OF SYSTEMS: All within normal except history of present illness. PHYSICAL EXAMINATION: HEENT: Within normal. LUNGS: CTA bilateral. CARDIOVASCULAR: S1, S2, regular rate and rhythm. ABDOMEN: Gravid, nontender. Negative CVA bilateral. EXTREMITIES: Negative edema. No calf tenderness. PELVIC: Vaginal exam, no active bleeding or spotting noted. Ultrasound performed today, 09/03/2018, no evidence of placenta previa or abruption. H and H is 10.6 /31.5. ASSESSMENT: Intrauterine at 24 weeks and 1 day gestational age with resolving vaginal blee ding/discharge. PLAN: Discharge home with pelvic rest and follow up in the office in 1 week. Dictated By: GHADA LEES/CAROLINE Conf#: [id number] DID#: [id number]
== END 2018-09-03 10:35 | disposition home or self-care (01) ==
LOC: OBT 08:43 → L-D 08:43 → OBT 10:35
PROVIDERS: ATTEND Obstetrics & Gynecology
DX: O46.92 Antepartum hemorrhage, unspecified, second trimester (principal); Z3A.24 24 weeks gestation of pregnancy
CPT/HCPCS: 76815; 76817; 81001; 85025; 86850; 86900; 86901; 87086; G0463

== ENCOUNTER 2018-10-19 19:10 | Outpatient (CLI) | payer BC, MEDICAID ==
[~2018-10-19] VITALS: Ht 157.5 cm; Wt 71.6 kg
[2018-10-19 19:05] VITALS: Ht 157.5 cm; Wt 71.6 kg
[~2018-10-19 19:10] MED LIST changes: -AMOX1TAB10 PO
[2018-10-19 19:21] VITALS: BP 110/60; PULSE 18; RESP 18
[2018-10-19] MEDS ORDERED: FER325 PO (19:59)
--- NOTE | 2018-10-19 21:48 | PN ---
Triage Information Date/Time October 19, 2018 Reason for visit: DFM Weeks of Gestation 30w 5d /Para 2/0 Diabetes: none Hypertention: none Additional information Pt last felt the baby move at 8AM. She tried drinking a big bottle of cold water and ate some fruit and still there was no change before she came in. Pt also reports a 2 week h/o itching all over and on the bottom of her feet, worse during the night. PMHx: H/o sepsis in June due to pneumonia and a UTI. PSHx: none. All: Keflex. Objective Vital Signs Date Temp Pulse Resp B/P (MAP) Pulse Ox O2 O2 Flow FiO2 Time Delivery Rate 10/19/18 98.0 18 18 110/60 Room Air 19:21 (77) Heart Rate: 130's Heart Rate Comments Accels to 160 BPM. No decels. Contractions: None Results/Medications Result Diagram: 10/19/182027 Results 24 hrs Laboratory Tests Test 10/19/18 20:28 Sodium Level 135 Potassium Level 3.7 Chloride Level 105 Carbon Dioxide Level 25 Anion Gap 5 Blood Urea Nitrogen 7 Creatinine 0.48 Est Glomerular Filtrat Rate mL/min > 60 Glucose Level 91 Calcium Level 8.6 Total Bilirubin 0.4 Direct Bilirubin 0.00 Indirect Bilirubin 0.4 Aspartate Amino Transf (AST/SGOT) 23 Alanine Aminotransferase (ALT/SGPT) 23 Alkaline Phosphatase 127 H Total Protein 6.1 Albumin 3.1 L Globulin 3.00 Albumin/Globulin Ratio 1.03 Imaging Results BPP 8/8 with an PARVEZ of 9.9 cm. Disposition: Discharge Assessment/Plan A: IUP at 30w 5d. Decreased movement. P: Pt now feels the baby moving. Her ALT and ASDT levels are normal and a Total Bile Acid is pending. Pt has an appt with her doctor 10/21 and explained pt to discuss her itching with so he can follow up on the lab and possibly prescribe medication. kick counts reviewed. JEMAL WADDELL MD Oct 19, 2018 21:48
--- NOTE | 2018-10-20 02:54 | TRIAGE ---
OB Triage Datetime Report Generated by CPN: 10/20/2018 02:54 Datetime: 10/19/2018 20:00 Labor Evaluation Frequency: NONE Monitor Mode: External Resting Tone [place]: Relaxed Heart Rate FHR Baseline Rate: 135 Monitor Mode: External US Variability: Moderate 6-25 bpm Accelerations: 15X15 Decelerations: None Category: Category I Datetime: 10/19/2018 19:26 Time of Arrival: 10/19/2018 19:05 EGA: 30.5 Arrived By: Ambulatory Arrived From: Home Chief Complaint: c/o DFM and itching for the past two weeks on body and soles of feet, usually at night Movement: Decreased Contractions: Denies/Absent Rupture of Membranes: Denies Vaginal Bleeding: None Vaginal Discharge: Denies Recent Sexual Intercouse: Denies Abdominal Trauma: Not Applicable Patient Complaints: Other Time Provider Notified: 10/19/2018 19:46 Provider Notified: REICHE Initial Plan: EFM, CALL MD Datetime: 10/19/2018 19:21 Stage of : OB Triage Assessment Type: Triage Maternal Assessment Level of Consciousness: Fully Conscious DTR's/Clonus: DTRs 2+; No Clonus Headache: Denies Blurred Vision: No Respiratory Effort: Unlabored; Regular Rhythm; Equal Expansion Breath Sounds, Left: Clear and Equal Breath Sounds, Right: Clear and Equal Nausea/Vomiting: Denies RUQ Epigastric Pain: Denies Facial Edema: None Temperature Route: Oral Fall Risk Assessment History of Falling: (0) No Secondary Diagnosis: (0) No Ambulatory Aid: (0) Bedrest/Nurse Assist IV Therapy: (0) No Gait: (0) Normal/Bedrest/Immobile Mental Status: (0) Oriented to Own Ability Fall Score: 0 Fall Risk Score Definition: No Risk: No action required Pain Assessment Pain Scale: 0 Pain Presence: None/Denies Pain Type: N/A Datetime: 10/19/2018 19:20 Monitor Mode: External Datetime: 10/19/2018 19:18 Monitor Mode: External US Datetime: 10/19/2018 19:17 Stage of : OB Triage Datetime: 09/03/2018 09:01 Fall Score: 0 Fall Risk Score Definition: No Risk: No action required Datetime: 09/03/2018 09:00 EGA: 24.1
== END 2018-10-19 22:09 | disposition home or self-care (01) ==
LOC: L-D 19:10 → OBT 19:10
PROVIDERS: ATTEND Obstetrics & Gynecology
DX: O36.8130 Decreased fetal movements, third trimester, not applicable or unspecified (principal); Z3A.30 30 weeks gestation of pregnancy
CPT/HCPCS: 76818; 80053; 83789; G0463

== ENCOUNTER 2018-10-21 19:43 | Outpatient (CLI) | payer BC, MEDICAID ==
[~2018-10-21] VITALS: Ht 157.5 cm; Wt 71.8 kg
[~2018-10-21 19:43] MED LIST changes: -DOCU-144 PO; +FER325 PO
[2018-10-21 19:56] VITALS: Ht 157.5 cm; Wt 71.8 kg
[2018-10-21] MEDS ORDERED: LACTATED RINGER'S 1,000 ML IV SCH (21:30)
[2018-10-21] MEDS ORDERED: TERBUTALINE 1 MG/ML INJ SC ONE (23:00)
[2018-10-21] MEDS ORDERED: NIFEdipine 10 MG CAP PO ONE (23:00)
[2018-10-22] MEDS ORDERED: ONDANSETRON 4 MG INJ IV STA (01:00)
--- NOTE | 2018-10-22 02:15 | PN ---
Triage Information Date/Time October 22, 2018 Reason for visit: Abd/pelvic pain Weeks of Gestation 31w 1d /Para 2/0 Diabetes: none Hypertention: none Additional information Pt started with abdominal pain at 1600 and then had some vomiting. Upon arrival at the hospital she vomited once and had a round of diarrhea. Her partner had gastroenteritis yesterday from food but they ate different things. His passed by 24 hours. PMHx: none. PSHx: none. All Keflex. Objective 106/65 T= 97.6 Heart Rate: 130's Heart Rate Comments Accels to 165. No decels. Contractions: < 5 Minutes Apart Results/Medications Result Diagram: 10/22/18 0117 Results 24 hrs Laboratory Tests Test 10/21/18 19:40 10/22/18 01:17 Urine Color YELLOW Urine Clarity SLIGHTLY CLOUDY A Urine pH 7.0 Urine Specific [place] 1.017 Urine Ketones 2+ H Urine Nitrite NEGATIVE Urine Bilirubin NEGATIVE Urine Urobilinogen NEGATIVE Urine Leukocyte Esterase NEGATIVE Urine Microscopic RBC 0 Urine Microscopic WBC 1 Urine Squamous Epithelial Cells FEW Urine Bacteria FEW A Urine Hemoglobin NEGATIVE Urine Glucose NEGATIVE Urine Total Protein NEGATIVE White Blood Count 13.3 #H Red Blood Count 3.70 L Hemoglobin 11.8 L Hematocrit 34.8 L Mean Corpuscular Volume 94.1 Mean Corpuscular Hemoglobin 31.9 Mean Corpuscular Hemoglobin Concent 33.9 Red Cell Distribution Width 12.1 Platelet Count 260 Mean Platelet Volume 9.8 Immature Granulocytes % 4.200 H Neutrophils % 83.8 H Lymphocytes % 7.9 L Monocytes % 3.2 Eosinophils % 0.3 Basophils % 0.6 Nucleated Red Blood Cells % 0.0 Immature Granulocytes # 0.560 H Neutrophils # 11.2 H Lymphocytes # 1.1 Monocytes # 0.4 Eosinophils # 0.0 Basophils # 0.1 Nucleated Red Blood Cells # 0.0 Medications Current Medications Lactated Ringer's 1,000 ml @ 125 mls/hr Q8H IV Last administered on 10/21/18at 21:20; Admin Dose 125 MLS/HR; Start 10/21/18 at 21:30 Imaging Results BPP 8/8 with an PARVEZ of 15.6 cm. VTX. Cervical length is 4.3 cm. EFW 2210 grams. Disposition: Discharge Assessment/Plan A: IUP at 31w 1d. Gastroenteritis. False labor. P: Initally gave the pt an IV and a bolus of IVF's She started to contract more so gave her a dose of Procardia 20 mg once as she was a little tachycardic to give terbutaline.Eventually the contractions stopped and the pt felt much better and felt ready to be d/c'ed. She understands it can take a while to clear this upset. PTL precautions reviewed. JEMAL WADDELL MD Oct 22, 2018 02:15
--- NOTE | 2018-10-22 04:27 | TRIAGE ---
OB Triage Datetime Report Generated by CPN: 10/22/2018 04:27 Datetime: 10/22/2018 02:01 Stage of : OB Triage Datetime: 10/22/2018 02:00 Stage of : OB Triage Frequency: X3/30 MIN Monitor Mode: External Duration (sec)2399: 50-70 Quality: Moderate Pattern: Normal: <= 5 Contractions in 10 Minutes Resting Tone [place]: Relaxed FHR Baseline Rate: 140 Monitor Mode: External US Variability: Moderate 6-25 bpm Accelerations: 15X15 Decelerations: None Category: Category I Datetime: 10/22/2018 01:30 Stage of : OB Triage Frequency: 2-9 Monitor Mode: External Duration (sec)2399: 40-100 Quality: Moderate Pattern: Normal: <= 5 Contractions in 10 Minutes Resting Tone [place]: Relaxed FHR Baseline Rate: 140 Monitor Mode: External US Variability: Moderate 6-25 bpm Accelerations: 15X15 Decelerations: None Category: Category I Datetime: 10/22/2018 00:30 Stage of : OB Triage Frequency: 2-6 Monitor Mode: External Duration (sec)2399: 40-100 Quality: Moderate Pattern: Normal: <= 5 Contractions in 10 Minutes Resting Tone [place]: Relaxed FHR Baseline Rate: 140 Monitor Mode: External US Variability: Moderate 6-25 bpm Accelerations: 15X15 Decelerations: None Category: Category I Datetime: 10/21/2018 23:30 Stage of : OB Triage Frequency: 2-6 Monitor Mode: External Duration (sec)2399: 40-100 Quality: Moderate Pattern: Normal: <= 5 Contractions in 10 Minutes Resting Tone [place]: Relaxed FHR Baseline Rate: 135 Monitor Mode: External US Variability: Moderate 6-25 bpm Accelerations: 15X15 Decelerations: None Category: Category I Datetime: 10/21/2018 22:30 Stage of : OB Triage Frequency: 2-8 Monitor Mode: External Duration (sec)2399: 40-100 Quality: Moderate Pattern: Normal: <= 5 Contractions in 10 Minutes Resting Tone [place]: Relaxed FHR Baseline Rate: 140 Monitor Mode: External US Variability: Moderate 6-25 bpm Accelerations: 15X15 Decelerations: None Category: Category I Datetime: 10/21/2018 21:30 Stage of : OB Triage Frequency: 2-6 Monitor Mode: External Duration (sec)2399: 40-100 Quality: Moderate Pattern: Normal: <= 5 Contractions in 10 Minutes Resting Tone [place]: Relaxed FHR Baseline Rate: 140 Monitor Mode: External US Variability: Moderate 6-25 bpm Accelerations: 15X15 Decelerations: Variable Category: Category II Pain Scale: 7 Pain Presence: Intermittent Pain Type: Cramping Pain Location: Abdomen Pain Goal: 3 Pain Relief Measures: Comfort Measures Datetime: 10/21/2018 20:30 Stage of : OB Triage Temperature Route: Oral Frequency: 2-5 Monitor Mode: External Duration (sec)2399: 40-100 Quality: Moderate Pattern: Normal: <= 5 Contractions in 10 Minutes Resting Tone [place]: Relaxed FHR Baseline Rate: 140 Monitor Mode: External US Variability: Moderate 6-25 bpm Accelerations: 15X15 Decelerations: Variable Category: Category II Pain Scale: 7 Pain Presence: Intermittent Pain Type: Cramping Pain Location: Abdomen Pain Goal: 3 Pain Relief Measures: Comfort Measures Datetime: 10/21/2018 20:10 Stage of : OB Triage Frequency: 2-3 Monitor Mode: External Duration (sec)2399: 50-80 Resting Tone [place]: Relaxed FHR Baseline Rate: 150 Monitor Mode: External US Variability: Moderate 6-25 bpm Decelerations: Variable Category: Category II Datetime: 10/21/2018 19:53 Time of Arrival: 10/21/2018 19:30 EGA: 31.0 Arrived By: Wheelchair Arrived From: Home Chief Complaint: ABD PAIN, VOMITTING Movement: Present Contractions: Irregular Time Contractions Began: 10/21/2018 16:00 Rupture of Membranes: Denies Vaginal Bleeding: None Abdominal Trauma: Not Applicable Patient Complaints: Contractions; Cramping; Back Pain; Nausea; Vomiting Time Provider Notified: 10/21/2018 20:30 Provider Notified: CHASE Initial Plan: EFM, CALL MD FOR ORDERS (Annotations: Data stored by CPN on behalf of user) Datetime: 10/21/2018 19:52 Assessment Type: Triage Level of Consciousness: Fully Conscious DTR's/Clonus: DTRs 2+; No Clonus Headache: Denies Blurred Vision: No Respiratory Effort: Unlabored; Regular Rhythm; Equal Expansion Breath Sounds, Left: Clear and Equal Breath Sounds, Right: Clear and Equal Nausea/Vomiting: Denies RUQ Epigastric Pain: Denies Lower Extremities Edema: None Upper Extremities Edema: None Facial Edema: None History of Falling: (0) No Secondary Diagnosis: (0) No Ambulatory Aid: (0) Bedrest/Nurse Assist IV Therapy: (0) No Gait: (0) Normal/Bedrest/Immobile Mental Status: (0) Oriented to Own Ability Fall Score: 0 Fall Risk Score Definition: No Risk: No action required Datetime: 10/19/2018 21:00 Frequency: NONE Monitor Mode: External Resting Tone [place]: Relaxed FHR Baseline Rate: 125 Monitor Mode: External US Variability: Moderate 6-25 bpm Accelerations: 15X15 Decelerations: None Category: Category I
[2018-10-22] MEDS ORDERED: FAMO-96 PO (18:59)
[2018-10-22] MEDS ORDERED: ACET500C5 PO (18:59)
== END 2018-10-22 02:15 | disposition home or self-care (01) ==
LOC: OBT 19:43 → L-D 19:43 → OBT 10-22 02:15
PROVIDERS: ATTEND Obstetrics & Gynecology
DX: O99.613 Diseases of the digestive system complicating pregnancy, third trimester (principal); K52.9 Noninfective gastroenteritis and colitis, unspecified; O47.03 False labor before 37 completed weeks of gestation, third trimester; Z3A.31 31 weeks gestation of pregnancy
CPT/HCPCS: 36415; 76815; 76817; 76818; 81001; 81003; 85025; 87086; 96360; 96361; G0463; J3105; J7120

== ENCOUNTER 2018-10-22 13:57 | Outpatient (CLI) | payer BC, MEDICAID ==
[~2018-10-22] VITALS: Ht 160 cm; Wt 71.8 kg
[2018-10-22 15:25] VITALS: Ht 160 cm; Wt 71.8 kg
--- NOTE | 2018-10-22 16:43 | TRIAGE ---
OB Triage Datetime Report Generated by CPN: 10/22/2018 16:42 Datetime: 10/22/2018 15:50 Stage of : OB Triage Frequency: none Pattern: Normal: <= 5 Contractions in 10 Minutes Resting Tone [place]: Relaxed FHR Baseline Rate: 150 Monitor Mode: External US FHR Baseline Changes: No Baseline Change Variability: Moderate 6-25 bpm Accelerations: 15X15 Decelerations: None Category: Category I Pain Presence: None/Denies Membrane Status: Intact Datetime: 10/22/2018 15:30 Headache: Denies Frequency: none Pattern: Normal: <= 5 Contractions in 10 Minutes Resting Tone [place]: Relaxed FHR Baseline Rate: 150 Monitor Mode: External US Variability: Moderate 6-25 bpm Accelerations: 15X15 Decelerations: None Category: Category I Pain Presence: None/Denies Pain Assessment Comments: complaining of chest pain, Dr Ching notified, order for EKG and blood work done Datetime: 10/22/2018 14:05 Assessment Type: Admission Assessment Time of Arrival: 10/22/2018 14:05 EGA: 31.1 Arrived By: Ambulatory Arrived From: Home Chief Complaint: shortness of breath, back pain, UC Movement: Present Contractions: Occasional Rupture of Membranes: Denies Vaginal Bleeding: Normal Show Vaginal Discharge: Present Recent Sexual Intercouse: Denies Abdominal Trauma: Not Applicable Patient Complaints: Contractions; Cramping; Shortness of Breath Time Provider Notified: 10/22/2018 16:40 Provider Notified: Dr Ching Initial Plan: NST, CL, BPP, UA _ Urine culture Level of Consciousness: Fully Conscious DTR's/Clonus: DTRs 2+; No Clonus Headache: Denies Blurred Vision: No Respiratory Effort: Unlabored; Regular Rhythm; Equal Expansion Breath Sounds, Left: Clear and Equal Breath Sounds, Right: Clear and Equal Nausea/Vomiting: Denies RUQ Epigastric Pain: Denies Lower Extremities Edema: None Degree: None Upper Extremities Edema: None Degree: None Facial Edema: None History of Falling: (0) No Secondary Diagnosis: (0) No Ambulatory Aid: (0) Bedrest/Nurse Assist IV Therapy: (0) No Gait: (0) Normal/Bedrest/Immobile Mental Status: (0) Oriented to Own Ability Fall Score: 0 Fall Risk Score Definition: No Risk: No action required
--- NOTE | 2018-10-22 16:43 | PN ---
Triage Information Date/Time Reason for visit: labor Weeks of Gestation 30+ /Para n/a Diabetes: none Objective Heart Rate: 140's Contractions: None Results/Medications Results 24 hrs Laboratory Tests Test 10/22/18 15:00 Urine Color STRAW Urine Clarity CLEAR Urine pH 9.0 Urine Specific [place] 1.003 Urine Ketones NEGATIVE Urine Nitrite NEGATIVE Urine Bilirubin NEGATIVE Urine Urobilinogen 1+ H Urine Leukocyte Esterase TRACE A Urine Microscopic RBC 0 Urine Microscopic WBC 3 Urine Squamous Epithelial Cells FEW Urine Bacteria FEW A Urine Hemoglobin NEGATIVE Urine Glucose NEGATIVE Urine Total Protein NEGATIVE Disposition: Discharge Assessment/Plan CXL >4 cm No CTXs Discharged to ER for further evaluation of Chest pain Follow up with provider Questions answered Precautions discussed PRANAY SCHREIBER M.D. Oct 22, 2018 16:43
[2018-10-22] MEDS ORDERED: FAMO-96 PO (18:59)
[2018-10-22] MEDS ORDERED: ACET500C5 PO (18:59)
--- NOTE | 2018-10-29 16:56 | RADRPT ---
Vent Rate: 92 bpm RR Interval: 656 msec NC Interval: 125 msec QRS Duration: 89 msec QT Interval: 356 msec QTC Interval: 440 msec P-R-T [place]: 38 - 44 - 35 degrees Sinus rhythm...normal P axis, V-rate 50- 99 Electronically Signed By: Patrick Quan
== END 2018-10-22 16:45 | disposition home or self-care (01) ==
LOC: L-D 13:57 → OBT 13:57
PROVIDERS: ATTEND Obstetrics & Gynecology
DX: O60.03 Preterm labor without delivery, third trimester (principal); Z3A.30 30 weeks gestation of pregnancy
CPT/HCPCS: 76817; 76818; 81001; 84484; 87086; 93005; G0463

== ENCOUNTER 2018-10-22 16:57 | Emergency (ER) | payer BC, MEDICAID ==
[~2018-10-22] VITALS: Ht 157.5 cm; Wt 71.8 kg
[2018-10-22 17:16] VITALS: Ht 157.5 cm; Wt 71.8 kg
[2018-10-22] MEDS ORDERED: FAMO-96 PO (18:59)
[2018-10-22] MEDS ORDERED: ACET500C5 PO (18:59)
--- NOTE | 2018-10-22 19:01 | ERD ---
ER Documentation Chief Complaint Chief Complaint chest pain gerd and left leg cramping x 1wks, 31 wks preg, cleared by ob HPI 23-year-old female approximately 31 weeks by dates presents with multiple complaints. She has intermittent crampy chest pain as well as paresthesias in her bilateral feet and intermittent dorsiflexion of her toes. She is been seen over the last 2 days and had normal blood work. She had normal urine she had normal third trimester ultrasound today by report. She denies any vaginal bleeding, dysuria, vomiting, shortness of breath, hemoptysis, syncope, significant abdominal pain. She is a G2 para 0. ROS All systems reviewed and are negative except as per history of present illness. Medications Home Meds Active Scripts Famotidine* (Pepcid*) 20 Mg Tablet, 20 MG PO QHS for 4 Days, #20 TAB Prov:JOSE R LOUIS MD 10/22/18 Acetaminophen* (Tylophen*) 500 Mg Capsule, 1 CAP PO Q6H PRN for PAIN AND OR ELEVATED TEMP, #15 CAP Prov:JOSE R LOUIS MD 10/22/18 Vit No.130/Iron/FA ( Tablet) 1 Each Tablet, 1 TAB PO DAILY, #30 TAB 6 Refills Prov:MECCA LEVIN 07/16/18 Reported Medications Ferrous Sulfate* (Ferrous Sulfate*) 325 Mg Tabec, 325 MG PO DAILY, TAB 10/19/18 Discontinued Scripts Docusate Sodium* (Colace*) 100 Mg Capsule, 100 MG PO BID, #60 CAP 3 Refills Prov:MECCA LEVIN 07/16/18 Allergies Allergies: Coded Allergies: cephalexin (Verified Allergy, Intermediate, HIVES, 10/21/18) PMhx/Soc History of Surgery: No Hx Psychiatric Problems: Yes (Anxiety) Hx Alcohol Use: No Hx Substance Use: No Hx Tobacco Use: No FmHx Family History: No diabetes, No coronary disease, No other Physical Exam Vitals Vital Signs Date Temp Pulse Resp B/P (MAP) Pulse Ox O2 O2 Flow FiO2 Time Delivery Rate 10/22/18 98.4 114 20 102/64 98 17:16 (77) Physical Exam Const: No acute distress Head: Atraumatic Eyes: Normal Conjunctiva ENT: Normal External Ears, Nose and Mouth. Neck: Full range of motion. No meningismus. Resp: Clear to auscultation bilaterally Cardio: Regular rate and rhythm, no murmurs Abd: Soft, non tender, non distended. Normal bowel sounds Skin: No petechiae or rashes Back: No midline or flank tenderness Ext: No cyanosis, or edema. no calf swelling or Homans sign. Neur: Awake and alert Psych: Normal Mood and Affect Procedures/MDM Patient presents with multiple complaints in the third trimester . She has intermittent crampy chest pain. EKG: Rate/Rhythm: Normal Sinus Rhythm. Rate equals 90. QRS, ST, T-waves: No changes consistent w/ acute ischemia Impression: No evidence of ischemia or arrhythmia She has clear lungs on auscultation. She has no signs or symptoms suggest DVT. She has intermittent cramping of her toes and feet but had normal labs by report yesterday as well as normal urine. She has no significant abdominal tenderness. She is well-appearing without evidence of hypoxemia, respiratory distress. No PE. She does have mild intermittent tachycardia without symptoms to suggest cardiac chest pain. She is otherwise well-appearing. I suspect she may be having GERD or normal symptoms of third trimester . I do not think repeating labs or urine or radiologic studies done within the next last day will be fruitful. I am recommending continuation of fluids at home, rest, OB follow- up and return precautions for bleeding, shortness of breath, fevers, new worsening symptoms with primary doctor as directed. Patient agrees with the assessment and plan. The patient was stable with no new complaints during the ER course. Clinically, there is no current evidence to suggest meningitis, sepsis, acute abdomen, pneumonia, stroke, acute coronary syndrome, pulmonary embolism, aortic dissection or any other emergent condition appearing to require further evaluation or hospitalization. Patient counseled regarding my diagno stic impression and care plan. Prior to discharge all questions answered. Pt agrees with treatment plan and understands strict return precautions. Pt is instructed to follow up with primary care provider within 24-48 hours. Precautionary instructions provided including instructions to return to the ER if not improving or for any worsening or changing symptoms or concerns. Disclaimer: Inadvertent spelling and grammatical errors are likely due to EHR/dictation software use and do not reflect on the overall quality of patient care. Also, please note that the electronic time recorded on this note does not necessarily reflect the actual time of the patient encounter. Departure Diagnosis: Primary Impression: Chest pain Chest pain type: unspecified Qualified Codes: R07.9 - Chest pain, unspecified Condition: Stable Patient Instructions: Chest Pain, Uncertain Cause Referrals: DOCTOR,NOT ON STAFF (PCP) Additional Instructions: Suspect reflux or normal changes of . Continue drinking fluids. Recheck for fevers, vomiting, bleeding, shortness of breath, new worsening s ymptoms. JOSE R LOUIS MD Oct 22, 2018 19:01
[2018-10-22 19:14] VITALS: BP 107/62; PULSE 97; RESP 18
== END 2018-10-22 19:15 | disposition home or self-care (01) ==
LOC: FTE 16:57
DX: O26.893 Other specified pregnancy related conditions, third trimester (principal); R07.9 Chest pain, unspecified; Z3A.31 31 weeks gestation of pregnancy
CPT/HCPCS: 99282

== ENCOUNTER 2018-11-05 16:10 | Outpatient (CLI) | payer BC, MEDICAID ==
[~2018-11-05] VITALS: Ht 157.5 cm; Wt 72.7 kg
[~2018-11-05 16:10] MED LIST changes: +ACET500C5 PO; +FAMO-96 PO
[2018-11-05 16:25] VITALS: Ht 157.5 cm; Wt 72.7 kg
--- NOTE | 2018-11-05 21:52 | PREOPHP ---
DATE OF ADMISSION: 11/05/2018 HISTORY OF PRESENT ILLNESS: Ms. Rhonda Mcdowell is a 23-year-old 2, para 0, EDC 12/23/2018 i ntrauterine at 33 weeks and 1 day gestational age, presented to triage complaining of decre ased movement for the past 1 to 2 days. She denies any vaginal bleeding or discharge. Her bio physical profile is 8/8 with a borderline polyhydramnios of 22.5 cm. Currently, she reports good fet al movement. Her care took place at [facility]. PAST MEDICAL HISTORY: None. MEDICATIONS: vitamins. PAST SURGICAL HISTORY: None. OBSTETRICAL HISTORY: x1 missed AB. GYNECOLOGIC HISTORY: Menarche age 13, regular 3 to 4 days. Denies any sexually transmitted disease. Sexually active with 1 partner. SOCIAL HISTORY: Denies any smoking, drugs or alcohol. FAMILY HISTORY: None. REVIEW OF SYSTEMS: All within normal except history of present illness. PHYSICAL EXAMINATION: HEENT: Within normal. LUNGS: CTA bilateral. CARDIOVASCULAR: S1, S2, regular rhythm. ABDOMEN: Gravid, nontender. Negative CVA bilateral. EXTREMITIES: Negative calf tenderness. PELVIC: Vaginal exam deferred. heart tracing category 1. [place]: no contractions. ASSESSMENT: Intrauterine at 33 weeks and 1 day gestational age with polyhydramnios. Bioph ysical profile reassuring. PLAN: Discharged home today with nonstress test and biophysical twice weekly. Strict kick cou nts and labor precautions. Dictated By: GHADA LEES/CAROLINE Conf#: [id number] DID#: [id number]
== END 2018-11-05 17:57 | disposition home or self-care (01) ==
LOC: OBT 16:10 → L-D 16:12 → OBT 17:57
PROVIDERS: ATTEND Obstetrics & Gynecology
DX: O40.3XX0 Polyhydramnios, third trimester, not applicable or unspecified (principal); Z3A.33 33 weeks gestation of pregnancy
CPT/HCPCS: 76818; G0463

== ENCOUNTER 2018-11-07 11:46 | Outpatient (CLI) | payer BC, MEDICAID ==
[~2018-11-07] VITALS: Ht 157.5 cm; Wt 72.7 kg
[~2018-11-07 11:46] MED LIST changes: -ACET500C5 PO; -FAMO-96 PO
[2018-11-07 12:12] VITALS: Ht 157.5 cm; Wt 72.7 kg
--- NOTE | 2018-11-07 15:36 | PN ---
Triage Information Date/Time November 07, 2018 Reason for visit: Uterine contractions Weeks of Gestation 33 weeks and 3 days /Para 2 para 0 Diabetes: none Hypertention: none Additional information 23-year-old G2, P0 with IUP at 33 weeks and 3 days presented with complaint of uterine contractions. She had been seen in triage multiple times for different reasons including decreased movement contractions. She reports anxiety disorder due to prior history of miscarriage. Patient denies any urinary symptoms. She was noted to have occasional rare contractions. Antepartum course otherwise uncomplicated. Objective Heart Rate: 130's Heart Rate Comments NST category 1 Contractions: >10 Minutes Apart Exam General appearance: Alert and oriented x4 does not appear to be in any acute distress Abdomen: Soft, gravid, fundal height consider gestational age NST: Category 1 Occasional rare contractions noted on the monitor UA negative Patient feeling improvement after above symptoms Results/Medications Results 24 hrs Laboratory Tests Test 11/07/18 13:00 Urine Color YELLOW Urine Clarity CLEAR Urine pH 8.0 Urine Specific [place] 1.013 Urine Ketones NEGATIVE Urine Nitrite NEGATIVE Urine Bilirubin NEGATIVE Urine Urobilinogen NEGATIVE Urine Leukocyte Esterase NEGATIVE Urine Hemoglobin NEGATIVE Urine Glucose NEGATIVE Urine Total Protein NEGATIVE Disposition: Discharge Assessment/Plan IUP at 33 weeks and 3 days History of miscarriage in the past False labor pain Resolved after hydration No evidence of UTI Anxiety disorder Recommended the patient to have rest at home and take time off Strict labor precautions kick count and follow-up with primary OB discussed within 24 hours to 48 hours after discharge from the hospital Patient is an appointment today with her primary OB. She is planning to attend the appointment. Patient verbalized understanding. All questions were answered. TENNILLE LAMA MD Nov 07, 2018 15:35
== END 2018-11-07 13:45 | disposition home or self-care (01) ==
LOC: OBT 11:46 → L-D 11:47 → OBT 13:45
PROVIDERS: ATTEND Obstetrics & Gynecology
DX: O47.03 False labor before 37 completed weeks of gestation, third trimester (principal); Z3A.33 33 weeks gestation of pregnancy
CPT/HCPCS: 81003; G0463

== ENCOUNTER 2018-11-18 19:58 | Emergency (ER) | payer BC, MEDICAID ==
[~2018-11-18] VITALS: Ht 157.5 cm; Wt 74.0 kg
[2018-11-18 20:16] VITALS: Ht 157.5 cm; Wt 74.0 kg
--- NOTE | 2018-11-18 21:53 | ERD ---
ER Documentation Chief Complaint Chief Complaint C/O MARIOLA LEG INSECT BITES X1 WEEK, WORSENING ITCHINESS HPI This is a 23-year-old female presents here in emergency department with complaints of insect bites of bilateral lower extremities. Stated that the extremities are itchy. Stated that this started after painting the crib of her baby outside her house. Patient stated that she is 35 weeks . She denies abdominal pain, pelvic pain, back pain, vaginal bleeding. LMP: Stated that she is 35 weeks . M1. Denies headache, head injury, loss of consciousness, dizziness, neck pain, neck stiffness, throat pain, difficulty swallowing, difficulty breathing lying flat, shoulder pain, chest pain, back pain, abdominal pain, nausea, vomiting, constipation, diarrhea, urinary symptoms, or possibility being , loss of bowel and bladder control, trauma, injury, falls, difficulty walking due to pain, numbness or tingling sensation, calf pain, recent travel, recent major surgery in the last 3 weeks, calf pain, recent long travel, recent exposure to any illness, recent antibiotic use in the last 3 months, fever, chills, seizures. Past medical history: Denies. Surgical history: Denies. Social: Denies smoking, use of alcoholic beverages, use of illegal drugs. ROS All systems reviewed and are negative except as per history of present illness. Medications Home Meds Active Scripts Vit No.124/Iron/FA ( Vitamin Tablet) 1 Each Tablet, 1 EACH PO DAILY, #30 TAB Prov:JAIME ANDRADE F 11/18/18 Acetaminophen* (Tylophen*) 500 Mg Capsule, 1 CAP PO Q6H PRN for PAIN AND OR ELEVATED TEMP, #20 CAP Prov:PASILABANJAIME F 11/18/18 Diphenhydramine Hcl* (Benadryl*) 25 Mg Cap, 25 MG PO Q6 PRN for ITCHING/RASH, #3 0 TAB Prov:PASILAJAIME VIRGEN F 11/18/18 Vit No.130/Iron/FA ( Tablet) 1 Each Tablet, 1 TAB PO DAILY, #30 TAB 6 Refills Prov:MECCA LEVIN 07/16/18 Reported Medications Ursodiol* (Ursodiol*) 300 Mg Capsule, 300 MG PO TID, CAP 11/19/18 Ferrous Sulfate* (Ferrous Sulfate*) 325 Mg Tabec, 325 MG PO DAILY, TAB 10/19/18 Allergies Allergies: Coded Allergies: cephalexin (Verified Allergy, Intermediate, HIVES, 11/05/18) PMhx/Soc History of Surgery: No Hx Psychiatric Problems: Yes (Anxiety) Hx Alcohol Use: No Hx Substance Use: No Hx Tobacco Use: No Smoking Status: Never smoker Physical Exam Vitals Physical Exam Const: No acute distress Head: Atraumatic Eyes: Normal Conjunctiva. No conjunctival injection. ENT: Normal External Ears, Nose and Mouth. Bilateral ear: TM is not erythematous. No bleeding. No discharge. No hearing loss. No mastoid tenderness. Nose: No nasal flaring. No signs of obstruction. Throat/Lips: No lip swelling. No tongue swelling. Able to control tongue movement. No drooling. Uvula is in midline and non-displaced. Tonsils are + 1 with no redness and no exudates. Tolerating secretions. Patent airway. Speaks full and clear sentences. No tripoding. Neck: Full range of motion. No meningismus. Nuchal rigidity. No signs of meningeal irritation. Resp: Clear to auscultation bilaterally. No retraction noted. No accessory muscle use in breathing. Cardio: Regular rate and rhythm, no murmurs. Abd: Soft, non tender, non distended. Normal bowel sounds. No abdominal tenderness. Skin: No petechiae. Multiple circular insect bites noted to bilateral lower extremities. No calf tenderness bilaterally. No hives. No vesicular lesions. Back: No midline or flank tenderness Ext: No cyanosis, or edema Neur: Awake and alert. No neurological deficit.. Psych: Normal Mood and Affect Results 24 hrs Current Medications Medications Dose Sig/Asim Start Time Status Last (Trade) Ordered Route PRN Stop Time Admin Dose Reason Admin 25 mg ONCE ONCE 11/18/18 DC 11/18/18 Diphenhydrami PO 22:00 11/18/18 22:08 ne HCl 22:01 (Benadryl) Procedures/MDM Diagnostic tests: Clinical exam. Treatment: Benadryl. Re-evaluation: Denies itchiness. No drooling. Able to control tongue movement. No tripoding. Speaks full and clear sentences. No accessory muscle use in breathing. Lung sounds are clear to auscultation. No neurological deficit. Stated that she feels much better at this time and that she is ready to go home. Stated that she is comfortable to go home. Differential diagnosis I have low suspicion for angioedema, airway obstruction, anaphylactic shock, anaphylaxis, Durham-Mark syndrome, chickenpox, shingles. Final diagnosis: Insect bites. Prescription: Benadryl. Tylenol. Follow-up with OB in the next 24-48 hours. Come back here in the emergency department for any new symptoms or any worsening symptoms. All questions and concerns were answered. Patient and family members verbalized understanding and agreed with plan of care. Hemodynamically stable on discharge. Departure Diagnosis: Primary Impression: Allergy, insect bite Additional Impressions: Insect bite Itching Condition: Stable Additional Instructions: Follow-up with OB in the next 24-48 hours. Come back here in the emergency department for any new symptoms or any worsening symptoms. JAIME ANDRADE Nov 18, 2018 21:53
[2018-11-18] MEDS ORDERED: DIPHENHYDRAMINE 25 MG CAP PO ONE (22:00)
[2018-11-18] MEDS ORDERED: BEN25 PO (22:07)
[2018-11-18] MEDS ORDERED: ACET500C5 PO (22:08)
[2018-11-18] MEDS ORDERED: PREN-93 PO (22:08)
[2018-11-18 22:24] VITALS: BP 100/60; PULSE 80; RESP 17
[2018-11-19] MEDS ORDERED: URSO300C3 PO (09:40)
== END 2018-11-18 22:24 | disposition home or self-care (01) ==
LOC: FTE 19:58
DX: O9A.213 Injury, poisoning and certain other consequences of external causes complicating pregnancy, third trimester (principal); S80.862A Insect bite (nonvenomous), left lower leg, initial encounter; S80.861A Insect bite (nonvenomous), right lower leg, initial encounter; W57.XXXA Bitten or stung by nonvenomous insect and other nonvenomous arthropods, initial encounter; Y92.9 Unspecified place or not applicable; Z3A.35 35 weeks gestation of pregnancy
CPT/HCPCS: 99282

== ENCOUNTER 2018-11-19 09:27 | Inpatient (IN) | payer BC, MEDICAID ==
[~2018-11-19] VITALS: Ht 157.5 cm; Wt 74.9 kg
[~2018-11-19 09:27] MED LIST changes: +ACET500C5 PO; +BEN25 PO; +PREN-93 PO
[2018-11-19 09:37] VITALS: BP 111/65; PULSE 71; RESP 18; Ht 157.5 cm; Wt 74.9 kg
[2018-11-19] MEDS ORDERED: URSO300C3 PO (09:40)
--- NOTE | 2018-11-19 13:12 | HP ---
Date/Time of Note Date/Time of Note DATE: 11/19/18 TIME: 13:07 OB - History Hx of Present Free Text/Dictation 35+wks with pyelonephritis and early labor : 2 Para: 1 Care: Good Care Ultrasounds: Normal mid trimester US Obstetrical Complications: None Medical Complications: None Past Family/Social History * Past Medical, Surgical, Family and Obstetric Histories reviewed from chart. OB Admission Exam Vital Signs Vital Signs Vital Signs Date Temp Pulse Resp B/P (MAP) Pulse Ox O2 O2 Flow FiO2 Time Delivery Rate 11/19/18 98.0 71 18 111/65 09:37 (80) Physical Exam Abdomen: WNL (+Left CVA tenderness) Cervical Dilatation: 2cm Effacement: 75% Station: -1 Membranes: Intact Heart Rate: 140's Accelerations: Accelerations Present Varibility: Moderate Contractions on Admission: 6-10 Minutes Apart OB Assessment/Plan Reason for admission: observation Other Assessment: PMH Denies PSH denies Plan: Expectant Management Other plan: IV Hydration IV Antibiotics is in charge of her patient and will follow up on his patient PRANAY SCHREIBER M.D. Nov 19, 2018 13:11
[2018-11-19] MEDS ORDERED: ACETAMINOPHEN 500 MG TAB PO PRN (15:00)
[2018-11-19] MEDS: GENTAMICIN 80 MG/NS (PMX) 50 ML IVPB SCH ×2 (15:37→21:27)
[2018-11-19] MEDS: LACTATED RINGER'S 1,000 ML IV SCH ×2 (15:37→22:21)
[2018-11-19] MEDS: URSODIOL 300 MG CAP PO SCH ×2 (17:00→22:07)
[2018-11-19] MEDS: BETAMET NA PHOS/AC(6 MG/ML) 2 ML INJ SYG IM SCH (19:00)
[2018-11-19] MEDS ORDERED: ACETAMINOPHEN 325 MG TAB PO PRN (21:30)
--- NOTE | 2018-11-19 22:19 | QN ---
Documentation Comment progress note patient was seen and evaluated patient complains of ctx vs stable afebrile ab gravid nt extremity no edema no calf tenderness ve 40/-3 fhr cat 1 toco regular ctx a/ iup at 35 wks ga, cholestasis of , recently diagnosed with pyelonephritis/ ptl p/ steriod treatment iv hydration perinatology consult GHADA STONE MD Nov 19, 2018 22:19
[2018-11-20] MEDS: GENTAMICIN 80 MG/NS (PMX) 50 ML IVPB SCH ×3 (05:20→21:37)
[2018-11-20] MEDS: LACTATED RINGER'S 1,000 ML IV SCH ×3 (06:43→22:41)
[2018-11-20] MEDS: FERROUS SULFATE (EC) 325 MG TAB PO SCH (09:10)
[2018-11-20] MEDS: PRENATAL VITAMIN PO SCH (09:10)
[2018-11-20] MEDS: URSODIOL 300 MG CAP PO SCH ×3 (09:10→21:37)
--- NOTE | 2018-11-20 11:35 | QN ---
Documentation Comment progress note patient was seen and evaluated patient complains of ctx vs stable afebrile ab gravid nt extremity no edema no calf tenderness ve 40/-3 fhr cat 1 toco regular ctx a/ iup at 35 wks ga, cholestasis of , recently diagnosed with pyelonephritis/ ptl p/ steriod treatment iv hydration perinatology consult GHADA STONE MD Nov 20, 2018 11:35
[2018-11-20] MEDS: BETAMET NA PHOS/AC(6 MG/ML) 2 ML INJ SYG IM SCH (19:04)
--- NOTE | 2018-11-21 00:48 | CONS ---
DATE OF ADMISSION: 11/19/2018 DATE OF CONSULTATION: 11/20/2018 HISTORY OF PRESENT ILLNESS: The patient is a G2, P1 at 35 weeks and 2 who was admitted with contract ions. She does feel better after IV hydration, but she does have nonfrequent contractions. Per cerv ical exam, 2 cm dilated, about 50% effaced. This is her first baby. She has had a miscarriage of th e first . She also has cholestasis currently on Actigall 3 times a day. Her history is negative. Vital signs are stable. Physical exam is deferred. heart tones are reassuring for gestational age, contractions every 7 to 10 minutes and sometimes less frequent. IMPRESSION: Intrauterine at 35 weeks and 2 days with labor who has been given the first dose of betamethasone yesterday to be given to the second dose tonight. Her contractions have been much less frequent since the time of admission only with IV hydration. Cholestasis on Actigall 3 times a day. RECOMMENDATIONS: After the second dose of betamethasone essentially tomorrow morning, if the cervica l exam is unchanged and she is comfortable, discharge the patient home with delivery at 37 weeks and NST twice weekly. Upon child delivery, she was instructed to continue with her Actigall and pay atte ntion to movement. Lastly, please do check liver function tests. If the liver function tests are very elevated, let me know because it will affect the timing of the delivery. Dictated By: MARIFER HERNÁNDEZ MD ST/NTS Conf#: [id number] DID#: [id number] CC: GHADA STONE MD;*End*
[2018-11-21] MEDS: LACTATED RINGER'S 1,000 ML IV SCH ×4 (05:15→23:54)
[2018-11-21] MEDS: GENTAMICIN 80 MG/NS (PMX) 50 ML IVPB SCH ×3 (05:43→21:13)
[2018-11-21] MEDS ORDERED: AMPICILLIN 2 GM/NS (PMX) 100 ML IVPB ONE (09:00)
[2018-11-21] MEDS: URSODIOL 300 MG CAP PO SCH ×3 (09:12→21:13)
[2018-11-21] MEDS: PRENATAL VITAMIN PO SCH (09:12)
[2018-11-21] MEDS: FERROUS SULFATE (EC) 325 MG TAB PO SCH (09:13)
--- NOTE | 2018-11-21 16:44 | PREAC ---
Date/Time of Note Date/Time of Note DATE: 11/21/18 TIME: 16:43 Anesthesia Eval and Record Evaluation Time Pre-Procedure Interview DATE: 11/21/18 TIME: 16:43 Age 23 Sex female NPO: 8 hrs Preoperative diagnosis IUP Planned procedure L&D Epidural Past Medical History Past Medical History: Includes GI: Obesity : : Surgery & Anesthesia Issues No known issue Meds Anticoagulation: No Beta Ruby within 24 hr: No Reason Beta Ruby not given: Pt. not on B-Ruby Active Scripts Vit No.124/Iron/FA ( Vitamin Tablet) 1 Each Tablet, 1 EACH PO DAILY, #30 TAB Prov:JAIME ANDRADE 11/18/18 Acetaminophen* (Tylophen*) 500 Mg Capsule, 1 CAP PO Q6H PRN for PAIN AND OR ELEVATED TEMP, #20 CAP Prov:JAIME ANDRADE 11/18/18 Diphenhydramine Hcl* (Benadryl*) 25 Mg Cap, 25 MG PO Q6 PRN for ITCHING/RASH, #30 TAB Prov:JAIME ANDRADE 11/18/18 Vit No.130/Iron/FA ( Tablet) 1 Each Tablet, 1 TAB PO DAILY, #30 TAB 6 Refills Prov:POONAMMECCA 07/16/18 Reported Medications Ursodiol* (Ursodiol*) 300 Mg Capsule, 300 MG PO TID, CAP 11/19/18 Ferrous Sulfate* (Ferrous Sulfate*) 325 Mg Tabec, 325 MG PO DAILY, TAB 10/19/18 Current Medications Lactated Ringer's 1,000 ml @ 125 mls/hr Q8H IV Last administered on 11/21/18at 14:45; Admin Dose 125 MLS/HR; Start 11/19/18 at 13:15 Prenat Multivit/ [place] Alarm Mechanic/Iron/Folic Ac () 1 tab DAILY PO Last adminis tered on 11/21/18at 09:12; Admin Dose 1 TAB; Start 11/20/18 at 09:00 Ferrous Sulfate (Ferrous Sulfate (Ec)) 325 mg DAILY PO Last administered on 11/21/18at 09:13; Admin Dose 325 MG; Start 11/20/18 at 09:00 Gentamicin Sulfate 50 ml @ 104 mls/hr Q8H IVPB Last administered on 11/21/18at 13:08; Admin Dose 104 MLS/HR; Start 11/19/18 at 13:30 Ursodiol (Actigall) 300 mg TID PO Last administered on 11/21/18at 13:08; Admin Dose 300 MG; Start 11/19/18 at 14:30 Acetaminophen (Tylenol Tab) 500 mg Q4H PRN PO FEVER; Start 11/19/18 at 15:00 Acetaminophen (Tylenol Tab) 650 mg Q4H PRN PO MILD PAIN(1-3)OR ELEVATED TEMP; Start 11/19/18 at 21:30 Meds reviewed: Yes Allergies Coded Allergies: cephalexin (Verified Allergy, Intermediate, HIVES, 11/05/18) Allergies Reviewed: Yes Labs/Studies Labs Reviewed: Reviewed by anesthesiologist Result Diagram: 11/19/18 1500 11/19/18 1500 test: Positive Studies: ECG Pre-procedure Exam Last vitals Vital Signs Date Temp Pulse Resp B/P (MAP) Pulse Ox O2 O2 Flow FiO2 Time Delivery Rate 11/19/18 98.0 71 18 111/65 09:37 (80) Airway: Adequate mouth opening, Adequate thyromental dist Mallampati: Mallampati II Teeth: Normal Lung: Normal Heart: Normal ASA Physical Status ASA physical status: 2 Emergency: None Planned Anesthetic Neuraxial: Epidural Planned Pain Management Epidural, Parenteral pain med Pre-operative Attestations Prior to commencing anesthesia and surgery, the patient was re-evaluated, there was verification of: *The patient's identity *The results of appropriate recent lab work and preoperative vital signs *The above evaluation not changing prior to induction *Anesthetic plan, risk benefits, alternative and complications discussed with patient/family; questions answered; patient/family understands, accepts and wishes to proceed. ALAINA SCHULTE MD Nov 21, 2018 16:44
[2018-11-21] MEDS ORDERED: FENTAnyl 2MCG/ML-ROPIV 0.2% 100 ML ONE (16:46)
[2018-11-21] MEDS ORDERED: ONDANSETRON 4 MG INJ IV PRN (17:00)
[2018-11-21] MEDS ORDERED: FENTAnyl 2MCG/ML-ROPIV 0.2% 100 ML BAG EPI SCH (17:00)
[2018-11-21] MEDS ORDERED: NALOXONE (0.4 MG/ML) INJ IV PRN (17:00)
[2018-11-21] MEDS ORDERED: DIPHENHYDRAMINE 50 MG INJ IV PRN (17:00)
--- NOTE | 2018-11-21 17:00 | QN ---
Documentation Comment Patient denies any complaints. Denies any fever or chills. Comfortable. Denies any leaking of fluid, vaginal bleeding or decreased movement reported improvement of symptoms Physical examination: General appears alert and oriented x4 does not appear to be in any acute distress Abdomen: Soft, gravid, fundal height consider gestational age NST: Category 1 No contraction on the monitor IUP at 35 weeks s/p Steriod x 2 in the past Admitted for pyelonephritis and cholestasis of Patient receiving ursodiol symptoms improved, On IV gentamicin. Has allergy reaction to cephalosporins and Keflex. Attempted to give a dose of IV ampicillin however patient started having a rash. It stopped During observation one episode of late deceleration noted will contnue to observe closely Follow-up of urine culture Continue NST every shift, continue ursodiol Inpatient management, TENNILLE VEGA MD Nov 21, 2018 17:00
[2018-11-21] MEDS ORDERED: AL HYDROX/MG HYDROX/SIMETH 30 ML CUP PO PRN (20:30)
[2018-11-21] MEDS ORDERED: FAMOTIDINE 20 MG INJ IV SCH (21:30)
[2018-11-22] MEDS: GENTAMICIN 80 MG/NS (PMX) 50 ML IVPB SCH (05:31)
[2018-11-22] MEDS: URSODIOL 300 MG CAP PO SCH (11:00)
--- NOTE | 2018-11-22 11:09 | PD.PPDC ---
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
--- NOTE | 2018-11-22 11:54 | DS ---
Date/Time of Note Date/Time of Note DATE: 11/22/18 TIME: 11:50 Obstetrical Discharge Record Final Diagnosis Final Diagnosis: not delivered Other Final Diagnosis chlestasis IUP 35w4d PTL R/O PPROM Complications Labor Augmentation: No Induction: No Rupture of Membranes: No Condition on Discharge Physical Assessment Last Vitals: normotensive 120/70 11/19/18 LFT nl EFM infrequent UC's CAT I tracing f./u biwkly antepartum test tue 11/26/18 appointed continue actigal Voiding: Yes Bowel Movement: Yes Breast: Soft, non-tender Fundus: Other () Abdomen and Incision: infrequent UC's Episiotomy: n/a Calf Tenderness: No Patient Condition: Stable KD WAKEFIELD MD Nov 22, 2018 11:54
--- NOTE | 2018-11-23 10:35 | PAC ---
Date/Time of Note Date/Time of Note DATE: 11/23/18 TIME: 10:34 Post-Anesthesia Notes Post-Anesthesia Note Last documented vital signs Vital Signs Date Temp Pulse Resp B/P (MAP) Pulse Ox O2 O2 Flow FiO2 Time Delivery Rate 11/19/18 98.0 71 18 111/65 09:37 (80) Activity: WNL Respiratory function: WNL Cardiovascular function: WNL Mental status: Baseline Pain reasonably controlled: Yes Hydration appropriate: Yes Nausea/Vomiting absent: Yes Comments Pt requiered no anesthesia intervention ALAINA SCHULTE MD Nov 23, 2018 10:35
== END 2018-11-22 13:52 | disposition home or self-care (01) | DRG 831 ==
LOC: OBT 09:27 → L-D 09:29 → OBT 13:00 → L-D 13:13
PROVIDERS: ADMIT Obstetrics & Gynecology; ATTEND Obstetrics & Gynecology
DX: O23.03 Infections of kidney in pregnancy, third trimester (principal); O60.03 Preterm labor without delivery, third trimester; K83.1 Obstruction of bile duct; O26.613 Liver and biliary tract disorders in pregnancy, third trimester; Z3A.35 35 weeks gestation of pregnancy
CPT/HCPCS: 76815; 76818; 80053; 81003; 84112; 85025; 85610; 85730; 86850; 86900; 86901; 87086; 87340; G0463; J0290; J0702; J1580; J3010; J7120

== ENCOUNTER 2018-12-02 08:00 | Inpatient (IN) | payer BC, MEDICAID ==
[~2018-12-02] VITALS: Ht 157.5 cm; Wt 73.2 kg
[~2018-12-02 08:00] MED LIST changes: +URSO300C3 PO
[2018-12-02 09:30] VITALS: BP 110/66; PULSE 89; RESP 18
[2018-12-02] MEDS ORDERED: LACTATED RINGER'S 1,000 ML IV PRN (09:44)
[2018-12-02] MEDS ORDERED: LACTATED RINGER'S 1,000 ML IV SCH (09:44)
[2018-12-02] MEDS ORDERED: OXYCODONE/ASPIRIN (4.88/325) TAB PO PRN (10:00)
[2018-12-02] MEDS ORDERED: OXYTOCIN 30 UNITS/LR 500 ML IV PRN (10:00)
[2018-12-02] MEDS ORDERED: LIDOCAINE 1% (MPF) 30 ML INJ INJ PRN (10:00)
[2018-12-02] MEDS ORDERED: IBUPROFEN 600 MG TAB PO PRN (10:00)
[2018-12-02] MEDS ORDERED: CARBOPROST 250 MCG INJ IM PRN (10:00)
[2018-12-02] MEDS ORDERED: OXYTOCIN 30 UNITS/LR 500 ML IV SCH ×2 (10:00)
[2018-12-02] MEDS ORDERED: METHYLERGONOVINE 0.2 MG INJ IM PRN (10:00)
[2018-12-02] MEDS ORDERED: MISOPROSTOL 200 MCG TAB PR PRN (10:00)
--- NOTE | 2018-12-02 11:15 | PREOPHP ---
DATE OF ADMISSION: 12/02/2018 HISTORY OF PRESENT ILLNESS: Ms. Sheila Mcdowell is a 23-year-old 2, para 0, EDC 12/22/2018 intrauterine at 37 weeks gestational age, admitted today for induction secondary to cholest asis of . She reports of having continued generalized itching but reports good moveme nt. She denies any contractions, vaginal bleeding, or discharge. Her care took place at [facility]. PAST MEDICAL HISTORY: Cholestasis of . MEDICATIONS: vitamins, Actigall. PAST SURGICAL HISTORY: None. OBSTETRICAL HISTORY: x1 missed AB. GYNECOLOGIC HISTORY: 12, regular 3 to 4 days. Denies any sexually transmitted infections. Sexually active with 1 partner. SOCIAL HISTORY: Denies any smoking, drugs or alcohol. FAMILY HISTORY: None. REVIEW OF SYSTEMS: All within normal except history of present illness. PHYSICAL EXAMINATION: HEENT: Within normal. LUNGS: CTA bilateral. CARDIOVASCULAR: S1, S2, regular rhythm. ABDOMEN: Gravid, nontender. Negative CVA bilateral. EXTREMITIES: Negative. No calf tenderness. PELVIC: Vaginal exam deferred. 140-3 posterior. heart tracing category 1. [place]: Occasional contractions. ASSESSMENT: Intrauterine at 37 weeks gestational age, cholestasis of . PLAN: Start Cytotec for cervical ripening followed by Pitocin. Risks, benefits and alternatives exp lained. Dictated By: GHADA LEES/CAROLINE Conf#: [id number] DID#: [id number]
[2018-12-02] MEDS: URSODIOL 300 MG CAP PO SCH ×3 (11:48→21:01)
[2018-12-02] MEDS: MISOPROSTOL 50 MCG CAPSULE PO SCH ×2 (11:59→16:12)
[2018-12-02] MEDS: LACTATED RINGER'S 1,000 ML IV PRN (19:09)
[2018-12-03] MEDS: LACTATED RINGER'S 1,000 ML IV PRN ×3 (02:19→19:49)
[2018-12-03] MEDS: BUTORPHANOL 2 MG INJ IV PRN (04:27)
[2018-12-03] MEDS ORDERED: OXYTOCIN 30 UNITS/LR 500 ML IV PRN (09:00)
[2018-12-03] MEDS: URSODIOL 300 MG CAP PO SCH ×3 (09:32→21:15)
[2018-12-03] MEDS: PRENATAL VITAMIN PO SCH (12:03)
[2018-12-03] MEDS: MISOPROSTOL 50 MCG CAPSULE PO PRN ×2 (13:04→17:04)
--- NOTE | 2018-12-03 18:49 | QN ---
Documentation Comment progress note patient seen and evaluated no complaints vs stable afebrile abd soft nt gravid extremity no edema no calf tenderness ve 2/60/-2 fhr cat 1 toco regular a/ Intrauterine at 37 weeks gestational age, cholestasis of . p/ start pitocin anticipate vaginal delivery GHADA STONE MD Dec 03, 2018 18:49
[2018-12-03] MEDS: MISOPROSTOL 50 MCG CAPSULE PO SCH (19:00)
[2018-12-04] MEDS: BUTORPHANOL 2 MG INJ IV PRN (00:50)
[2018-12-04] MEDS: LACTATED RINGER'S 1,000 ML IV PRN ×3 (01:25→14:03)
[2018-12-04] MEDS ORDERED: LACTATED RINGER'S 1,000 ML IV PRN (02:35)
[2018-12-04] MEDS ORDERED: FENTAnyl 2MCG/ML-ROPIV 0.2% 100 ML ONE (03:24)
--- NOTE | 2018-12-04 03:25 | PREAC ---
Date/Time of Note Date/Time of Note DATE: 12/04/18 TIME: 03:24 Anesthesia Eval and Record Evaluation Time Pre-Procedure Interview DATE: 12/04/18 TIME: 03:24 Age 23 Sex female NPO: 8 hrs Preoperative diagnosis iup at term Planned procedure labopr epidural Past Medical History Past Medical History: None Surgery & Anesthesia Issues No known issue Meds Anticoagulation: No Beta Ruby within 24 hr: No Reason Beta Ruby not given: Pt. not on B-Ruby Active Scripts Vit No.124/Iron/FA ( Vitamin Tablet) 1 Each Tablet, 1 EACH PO DAILY, #30 TAB Prov:JAIME ANDRADE 11/18/18 Reported Medications Ursodiol* (Ursodiol*) 300 Mg Capsule, 300 MG PO TID, CAP 11/19/18 Ferrous Sulfate* (Ferrous Sulfate*) 325 Mg Tabec, 325 MG PO DAILY, TAB 10/19/18 Discontinued Scripts Acetaminophen* (Tylophen*) 500 Mg Capsule, 1 CAP PO Q6H PRN for PAIN AND OR ELEVATED TEMP, #20 CAP Prov:JAIME ANDRADE 11/18/18 Diphenhydramine Hcl* (Benadryl*) 25 Mg Cap, 25 MG PO Q6 PRN for ITCHING/RASH, #30 TAB Prov:JAIME ANDRADE 11/18/18 Vit No.130/Iron/FA ( Tablet) 1 Each Tablet, 1 TAB PO DAILY, #30 TAB 6 Refills Prov:POONAMMECCA 07/16/18 Current Medications Butorphanol Tartrate (Stadol) 2 mg Q2H PRN IV .PAIN SCALE 6-10 Last administered on 12/04/18at 00:50; Admin Dose 2 MG; Start 12/02/18 at 10:00 Lidocaine (Xylocaine 1% (Mpf)) 30 ml ONCE PRN INJ .EPISIOTOMY; Start 12/02/18 at 10:00 Oxytocin/Lactated Ringer's 500 ml @ 500 mls/hr ONCE POST IV ; Start 12/02/18 at 10:00 Oxytocin/Lactated Ringer's 500 ml @ 125 mls/hr POST IV ; Start 12/02/18 at 10:00 Ibuprofen (Motrin) 600 mg ONCE PRN PO .PAIN 1-5; Start 12/02/18 at 10:00 Oxycodone/Aspirin (Percodan) 2 tab ONCE PRN PO .PAIN 6-10; Start 12/02/18 at 10:00 Lactated Ringer's 1,000 ml @ 2,000 mls/hr Q30M PRN IV .ANESTHESIA Last administered on 12/04/18at 02:58; Admin Dose 2,000 MLS/HR; Start 12/02/18 at 09:44 Oxytocin/Lactated Ringer's 500 ml @ 0 mls/hr ONCE PRN IV .VAGINAL BLEEDING; Start 12/02/18 at 10:00 Methylergonovine Maleate (Methergine) 0.2 mg ONCE PRN IM .VAGINAL BLEEDING; Start 12/02/18 at 10:00 Carboprost Tromethamine (Hemabate) 250 mcg ONCE PRN IM .VAGINAL BLEEDING; Start 12/02/18 at 10:00 Misoprostol (Cytotec) 1,000 mcg ONCE PRN MI .VAGINAL BLEEDING; Start 12/02/18 at 10:00 Ursodiol (Actigall) 300 mg TID PO Last administered on 12/03/18at 21:15; Admin Dose 300 MG; Start 12/02/18 at 10:00 Lactated Ringer's 1,000 ml @ 125 mls/hr Q8H PRN IV RESUSCITATION, TACHYSYST Last administered on 12/04/18at 01:25; Admin Dose 125 MLS/HR; Start 12/02/18 at 18:30 Oxytocin/Lactated Ringer's 500 ml @ 0 mls/hr FOR INDUCTION PRN IV INADEQUATE CONTRACTIONS Last administered on 12/03/18at 21:18; Admin Dose 1 MLS/HR; Start 12/03/18 at 09:00 Prenat Multivit/ [place]/Iron/Folic Ac () 1 tab DAILY PO Last administered on 12/03/18at 12:03; Admin Dose 1 TAB; Start 12/03/18 at 11:30 Lactated Ringer's 1,000 ml @ 2,000 mls/hr Q30M PRN IV .ANESTHESIA; Start 12/04/18 at 02:35 Meds reviewed: Yes Allergies Coded Allergies: cephalexin (Verified Allergy, Intermediate, HIVES, 11/05/18) Allergies Reviewed: Yes Labs/Studies Labs Reviewed: Reviewed by anesthesiologist Result Diagram: 12/02/18 1152 12/02/18 1152 test: Positive Pre-procedure Exam Last vitals Vital Signs Date Temp Pulse Resp B/P (MAP) Pulse Ox O2 O2 Flow FiO2 Time Delivery Rate 12/02/18 98.6 89 18 110/66 99 Room Air 09:30 (81) Airway: Adequate mouth opening, Adequate thyromental dist Mallampati: Mallampati I Teeth: Normal Lung: Normal Heart: Normal ASA Physical Status ASA physical status: 2 Emergency: None Planned Anesthetic Neuraxial: Epidural Planned Pain Management Parenteral pain med Pre-operative Attestations Prior to commencing anesthesia and surgery, the patient was re-evaluated, there was verification of: *The patient's identity *The results of appropriate recent lab work and preoperative vital signs *The above evaluation not changing prior to induction *Anesthetic plan, risk benefits, alternative and complications discussed with patient/family; questions answered; patient/family understands, accepts and wishes to proceed. MOLLY WHITE Dec 04, 2018 03:25
[2018-12-04] MEDS ORDERED: NALOXONE (0.4 MG/ML) INJ IV PRN (03:30)
[2018-12-04] MEDS ORDERED: DIPHENHYDRAMINE 50 MG INJ IV PRN (03:30)
[2018-12-04] MEDS ORDERED: ONDANSETRON 4 MG INJ IV PRN ×2 (03:30→18:30)
--- NOTE | 2018-12-04 08:29 | PAC ---
Date/Time of Note Date/Time of Note DATE: 12/04/18 TIME: 08:28 Post-Anesthesia Notes Post-Anesthesia Note Last documented vital signs Vital Signs Date Temp Pulse Resp B/P (MAP) Pulse Ox O2 O2 Flow FiO2 Time Delivery Rate 12/03/18 98.6 89 18 110/66 99 Room Air 0820 (81) Activity: WNL Respiratory function: WNL Cardiovascular function: WNL Mental status: Baseline Pain reasonably controlled: Yes Hydration appropriate: Yes Nausea/Vomiting absent: Yes MOLLY WHITE Dec 04, 2018 08:29
[2018-12-04] MEDS: PRENATAL VITAMIN PO SCH (09:00)
[2018-12-04] MEDS: URSODIOL 300 MG CAP PO SCH ×2 (09:22→13:14)
[2018-12-04] MEDS: FENTAnyl 2MCG/ML-ROPIV 0.2% 100 ML BAG EPI SCH ×2 (11:24→16:41)
[2018-12-04] MEDS ORDERED: GENTAMICIN 80 MG/NS (PMX) 50 ML IVPB SCH (17:30)
[2018-12-04] MEDS ORDERED: CLINDAMYCIN 900 MG/D5W (PMX) 50 ML IVPB SCH (17:30)
[2018-12-04] MEDS ORDERED: ACETAMINOPHEN 325 MG TAB PO PRN ×2 (17:30→18:30)
[2018-12-04] MEDS ORDERED: OXYTOCIN 30 UNITS/LR 500 ML IV SCH (18:17)
--- NOTE | 2018-12-04 18:17 | LDN ---
Date/Time of Note Date/Time of Note DATE: 12/04/18 TIME: 18:15 Delivery Summary cholestasis of Weeks of Gestation 37 Placenta Delivered: Spontaneously Meconium: none Episiotomy: No Laceration repair: 1st degree vaginal laceration repair with 3-0 chormic Anesthesia type: Epidural Estimated blood loss: 150 Sponge & Needle done & correct: Yes All needle counts correct: Yes Any foreign bodies felt in the: No Infant Delivery Information Sex Infant Sex: female Apgars 1 Minute: 9 5 Minute: 9 Suctioning Nose & mouth suctioned at sophie: No Delee suction performed: No Umbilical Cord Umbilical cord with: 3 Vessels Cord presentations: no nuchal cord Cord Blood was obtained: Yes GHADA STONE MD Dec 04, 2018 18:17
[2018-12-04] MEDS ORDERED: CARBOPROST 250 MCG INJ IM PRN (18:30)
[2018-12-04] MEDS ORDERED: METHYLERGONOVINE 0.2 MG INJ IM PRN (18:30)
[2018-12-04] MEDS ORDERED: SENNA/DOCUSATE NA (8.6MG/50MG) TAB PO PRN (18:30)
[2018-12-04] MEDS ORDERED: WITCH HAZEL/GLYCERIN PAD PR PRN (18:30)
[2018-12-04] MEDS ORDERED: BENZOCAINE 20% 56 ML SPRAY TOP PRN (18:30)
[2018-12-04] MEDS ORDERED: NACL 0.9% 3 ML SYG IV SCH (18:30)
[2018-12-04] MEDS ORDERED: OXYTOCIN 30 UNITS/LR 500 ML IV PRN (18:30)
[2018-12-04] MEDS ORDERED: MISOPROSTOL 200 MCG TAB PR PRN (18:30)
[2018-12-04] MEDS ORDERED: LANOLIN HPA 1 PKT TOP PRN (18:30)
[2018-12-04 21:00] VITALS: BP 117/68; PULSE 58; RESP 18
[2018-12-04] MEDS: SENNA/DOCUSATE NA (8.6MG/50MG) TAB PO SCH (21:58)
[2018-12-04] MEDS: IBUPROFEN 600 MG TAB PO SCH (23:33)
[2018-12-05] VITALS (23 sets, daily range): BP systolic 97–175; BP diastolic 53–95; PULSE 60–82; RESP 14–75
[2018-12-05] MEDS: LACTATED RINGER'S 1,000 ML IV SCH ×2 (02:03→11:23)
[2018-12-05] MEDS ORDERED: morphine 4 MG/ML VIAL IV ONE (02:08)
[2018-12-05] MEDS ORDERED: morphine 4 MG/ML VIAL IV STA (02:09)
[2018-12-05] MEDS ORDERED: KETOROLAC 30 MG INJ IV ONE ×3 (02:09→02:12)
[2018-12-05] MEDS ORDERED: HYDROmorphONE 1 MG/ML SYG IV ONE ×2 (02:09→02:30)
[2018-12-05] MEDS ORDERED: MAGNESIUM SULFATE 4 GM/100 ML 100 ML IV ONE (02:30)
[2018-12-05] MEDS ORDERED: GABAPENTIN 300 MG CAP PO ONE (02:30)
[2018-12-05] MEDS ORDERED: HYDROCORTISONE 100 MG INJ IV ONE (02:30)
[2018-12-05] MEDS: MAGNESIUM SULFATE 20 GM/500 ML 500 ML IV SCH ×2 (03:10→13:59)
[2018-12-05] MEDS: IBUPROFEN 600 MG TAB PO SCH ×3 (06:22→17:20)
[2018-12-05] MEDS: SENNA/DOCUSATE NA (8.6MG/50MG) TAB PO SCH ×2 (09:55→21:42)
--- NOTE | 2018-12-05 18:23 | QN ---
Documentation Comment progress note ppd 1 patient seen and evaluated patient was complaining of headache with elevated bp's was started on mg for siezure prophylax patient currently has no headache, n/v, sob, visual changes, epigastric pain vs stable afebrile ab soft, nt, uterine fundus firm extremity no edema no calf tenderness a/ sp vaginal delivery with suspected pp preeclampsia currently on mag ppd1 stable p/ discontinue mg after 24 hrs of mg and reevaluate consider discharge home tomorrow if stable GHADA STONE MD Dec 05, 2018 18:23
[2018-12-05] MEDS: KETOROLAC 30 MG INJ IV PRN (22:25)
[2018-12-06 00:40] VITALS: BP 102/59; PULSE 62; RESP 20
[2018-12-06 01:40] VITALS: BP 104/61; PULSE 75; RESP 17
[2018-12-06 02:40] VITALS: BP 101/60; PULSE 68; RESP 20
[2018-12-06 04:00] VITALS: BP 103/60; PULSE 66; RESP 17
[2018-12-06] MEDS: KETOROLAC 30 MG INJ IV PRN ×2 (04:19→10:18)
[2018-12-06 07:30] VITALS: BP 106/59; PULSE 80; RESP 18
[2018-12-06] MEDS: SENNA/DOCUSATE NA (8.6MG/50MG) TAB PO SCH (08:53)
--- NOTE | 2018-12-06 12:48 | QN ---
Documentation Comment progress note ppd 2 patient seen and evaluated patient reports her headaches improved significantly with the blood patch she recently recieved patient currently has no headache, n/v, sob, visual changes, epigastric pain vs stable afebrile ab soft, nt, uterine fundus firm extremity no edema no calf tenderness a/ sp vaginal delivery with resolving symptoms of spinal headache with blood patch ppd2 stable p/ discharge home today after cleared by anesthesia GHADA STONE MD Dec 06, 2018 12:48
--- NOTE | 2018-12-06 12:48 | PD.PPDC ---
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
--- NOTE | 2018-12-06 12:51 | DS ---
Date/Time of Note Date/Time of Note DATE: 12/06/18 TIME: 12:49 Obstetrical Discharge Record Final Diagnosis Final Diagnosis: Term delivered Vaginal Delivery Obstetrical Delivery: Spontaneous, Laceration, Repaired Complications Other (cholestasis of ) Condition on Discharge Physical Assessment Last Vitals: stable afebrile Voiding: Yes Bowel Movement: Yes Breast: Soft, non-tender, Filling Fundus: Firm Abdomen and Incision: soft nt Calf Tenderness: No Patient Condition: GHADA Chong MD Dec 06, 2018 12:51
[2018-12-06 16:00] VITALS: BP 118/74; PULSE 78; RESP 18
--- NOTE | 2018-12-07 18:11 | DELSUM ---
Delivery Summary A-C Datetime Report Generated by CPN: 12/07/2018 18:11 DELIVERY PERSONNEL Patient Accounts Coordinator: Cheikh Ingris MATERNAL INFORMATION Delivery Anesthesia: Epidural Medications in Delivery: Oxytocin Delivery QBL (ml): 150 Placenta Cultured: No Maternal Complications: Other Other Maternal Complications: CHOLESTASIS LABOR SUMMARY EDC: 12/23/2018 00:00 No. Babies in Womb: 1 Attempted: No Labor Anesthesia: IV Sedation LABOR INFORMATION Reason for Induction: Other Reason for Induction- Other: CHOLESTASIS Onset of Labor: 12/03/2018 18:05 Complete Dilatation: 12/04/2018 17:00 Cervical Ripening Agents: Cytotec @ Group B Beta Strep: Negative Antibiotics # of Doses: 0 Steroids Given: None Reason Steroids Not Administered: Not Applicable MEMBRANES Membranes Rupture Method: Spontaneous Rupture of Membranes: 12/04/2018 06:51 Length of Rupture (hr): 10.85 Amniotic Fluid Color: Clear Amniotic Fluid Amount: Large Amniotic Fluid Odor: None STAGES OF LABOR Stage 1 hr: 22 Stage 1 min: 55 Stage 2 hr: 0 Stage 2 min: 42 Stage 3 hr: 0 Stage 3 min: 4 Total Time in Labor hr: 23 Total Time in Labor min: 41 VAGINAL DELIVERY Episiotomy: None Laceration Extension: First Degree Laceration Type: Vaginal Laceration Repair: Yes Initial Vag Sponge Count: 10 Final Vag Sponge Count: 10 Initial Vag Sharps Count: 2 Final Vag Sharps Count: 2 Sponge Count Correct: Yes; Vaginal Sweep Performed Sharps Count Correct: Yes BABY A INFORMATION Infant Delivery Date/Time: 12/04/2018 17:42 Method of Delivery: Vaginal Born in Route : No : N/A Forceps: N/A Vacuum Extraction: N/A Shoulder Dystocia : No SHOULDER DYSTOCIA BABY A Delivery Date/Time: 12/04/2018 17:42 PRESENTATION/POSITION BABY A Presentation: Cephalic Cephalic Presentation: Vertex Vertex Position: Left Occipital Anterior Breech Presentation: N/A PLACENTA INFORMATION BABY A Placenta Delivery Time : 12/04/2018 17:46 Placenta Method of Delivery: Spontaneous Placenta Status: Delivered SCORES BABY A Heart Rate 1 min: >100 bpm Resp Effort 1 min: Good Cry Reflex Irritability 1 min: Cough/Sneeze/Pulls Away Muscle Tone 1 min: Active Motion Color 1 min: Body [place], Extremit Blue Resuscitation Effort 1 min: Tactile Stimulation SCORE 1 MIN: 9 Heart Rate 5 min: >100 bpm Resp Effort 5 min: Good Cry Reflex Irritability 5 min: Cough/Sneeze/Pulls Away Muscle Tone 5 min: Active Motion Color 5 min: Body [place], Extremit Blue Resuscitation Effort 5 min: N/A SCORE 5 MIN: 9 INFANT INFORMATION BABY A Gestational Age at Delivery: 37.2 Gestational Status: Early Term- 37- 38.6 Weeks Infant Outcome : Liveborn, with signs of life Condition : Stable Sex: Female IDENTIFICATION/MEDS BABY A ID Band Number: [id number] ID Band Location: Right Leg; Left Arm Sensor Applied: Yes Sensor Number: [id number] Sensor Location : Cord Clamp Vitamin K Given : Not Given; Deferred by Parents Erythromycin Given: Deferred by Parents; Not Given WEIGHT/LENGTH BABY A Birthweight (gm): 3500 Weight (lb): 7 Infant Weight (oz): 11 Infant Length (in): 20.00 Length (cm): 50.80 CORD INFORMATION BABY A No. Cord Vessels: 3 Nuchal Cord : N/A Cord Blood Taken: Yes Suction: Mouth; Nose ASSESSMENT BABY A Complications: Other Physical Findings at Delivery: Within Normal Limits Respirations: Appears Normal News Agent/ALS Called : No Transferred To: Remains with Mother
[2018-12-09] MEDS ORDERED: IBUPROFEN 600 MG TAB PO SCH
== END 2018-12-06 18:10 | disposition home or self-care (01) | DRG 805 ==
LOC: L-D 08:12 → PP1 12-04 20:47
PROVIDERS: ADMIT Obstetrics & Gynecology; ATTEND Obstetrics & Gynecology
PROC: 10E0XZZ Delivery of Products of Conception, External Approach (ICD-10-PCS; principal; 2018-12-04)
PROC: 0HQ9XZZ Repair Perineum Skin, External Approach (ICD-10-PCS; 2018-12-04)
PROC: 3E033VJ Introduction of Other Hormone into Peripheral Vein, Percutaneous Approach (ICD-10-PCS; 2018-12-04)
DX: O26.62 Liver and biliary tract disorders in childbirth (principal); K83.1 Obstruction of bile duct; Z37.0 Single live birth; O71.4 Obstetric high vaginal laceration alone; Z3A.37 37 weeks gestation of pregnancy
CPT/HCPCS: 62322; 70450; 76815; 80053; 83735; 85025; 85610; 85730; 86592; 86850; 86900; 86901; 99464; J0595; J1170; J1720; J1885; J2270; J2590; J3010; J3475; J7120

== ENCOUNTER 2018-12-08 11:10 | Emergency (ER) | payer BC, MEDICAID ==
[~2018-12-08] VITALS: Wt 68.1 kg
[~2018-12-08 11:10] MED LIST changes: -ACET500C5 PO; -BEN25 PO; -FER325 PO; -PREN1TAB71 PO
[2018-12-08 11:12] VITALS: Wt 68.1 kg
[2018-12-08] MEDS ORDERED: KETOROLAC 30 MG INJ IV STA (11:17)
[2018-12-08] MEDS ORDERED: SOD CHLORIDE 0.9% 1,000 ML IV STA (11:17)
[2018-12-08] MEDS ORDERED: PROCHLORPERAZINE 10 MG INJ IV STA (11:17)
[2018-12-08] MEDS ORDERED: DIPHENHYDRAMINE 50 MG INJ IV STA (11:17)
--- NOTE | 2018-12-08 12:39 | ERD ---
ER Documentation Chief Complaint Chief Complaint c/o tension type headache at 02/27 started yesterday HPI Is a 23-year-old female who presents for evaluation of a tension-like headache that began yesterday. Patient has been having this headache on and off since having given . She did receive an epidural, and had a blood patch on her admission, she had a normal spontaneous vaginal delivery on December 04, which is 4 days ago. Is experiencing the same headache that she had on her hospital admission. No fever, no neck stiffness. She is currently breast-feeding. ROS All systems reviewed and are negative except as per history of present illness. Medications Home Meds Active Scripts Vit No.124/Iron/FA ( Vitamin Tablet) 1 Each Tablet, 1 EACH PO DAILY, #30 TAB Prov:JAIME ANDRADE F 11/18/18 Reported Medications Ursodiol* (Ursodiol*) 300 Mg Capsule, 300 MG PO TID, CAP 11/19/18 Discontinued Reported Medications Ferrous Sulfate* (Ferrous Sulfate*) 325 Mg Tabec, 325 MG PO DAILY, TAB 10/19/18 Discontinued Scripts Acetaminophen* (Tylophen*) 500 Mg Capsule, 1 CAP PO Q6H PRN for PAIN AND OR ELEVATED TEMP, #20 CAP Prov:JAIME ANDRADE F 11/18/18 Diphenhydramine Hcl* (Benadryl*) 25 Mg Cap, 25 MG PO Q6 PRN for ITCHING/RASH, #30 TAB Prov:JAIME ANDRADE F 11/18/18 Vit No.130/Iron/FA ( Tablet) 1 Each Tablet, 1 TAB PO DAILY, #30 TAB 6 Refills Prov:MECCA LEVIN 07/16/18 Allergies Allergies: Coded Allergies: cephalexin (Verified Allergy, Intermediate, HIVES, 12/08/18) PMhx/Soc History of Surgery: No Anesthesia Reaction: No Hx Neurological Disorder: No Hx Cardiac Disorders: No Hx Psychiatric Problems: Yes (Anxiety) Hx Miscellaneous Medical Probl: No Hx Alcohol Use: No Hx Substance Use: No Hx Tobacco Use: No Smoking Status: Never smoker Physical Exam Vitals Vital Signs Date Temp Pulse Resp B/P (MAP) Pulse Ox O2 O2 Flow FiO2 Time Delivery Rate 12/08/18 98.0 72 16 115/85 96 Room Air 12:48 (95) 12/08/18 98.1 88 22 142/79 97 11:12 (100) Physical Exam Const: Uncomfortable appearing, well-developed well-nourished Head: Atraumatic Eyes: Normal Conjunctiva ENT: Normal External Ears, Nose and Mouth. Neck: Full range of motion. No meningismus., No neck stiffness Resp: Clear to auscultation bilaterally Cardio: Regular rate and rhythm, no murmurs Abd: Soft, non tender, non distended. Normal bowel sounds Skin: No petechiae or rashes Back: No midline or flank tenderness Ext: No cyanosis, or edema Neur: Awake and alert, cranial nerves II 12 intact, alert and oriented x4, no cerebellar ataxia Psych: Normal Mood and Affect Result Diagram: 12/08/18 1145 12/08/18 1145 Results 24 hrs Laboratory Tests Test 12/08/18 11:45 White Blood Count 8.6 10^3/ul Red Blood Count 4.08 10^6/ul Hemoglobin 13.0 g/dl Hematocrit 38.3 % Mean Corpuscular Volume 93.9 fl Mean Corpuscular Hemoglobin 31.9 pg Mean Corpuscular Hemoglobin Concent 33.9 g/dl Red Cell Distribution Width 12.6 % Platelet Count 257 10^3/UL Mean Platelet Volume 10.2 fl Immature Granulocytes % 3.800 % Neutrophils % 63.4 % Lymphocytes % 25.3 % Monocytes % 3.6 % Eosinophils % 3.4 % Basophils % 0.5 % Nucleated Red Blood Cells % 0.0 /100WBC Immature Granulocytes # 0.330 10^3/ul Neutrophils # 5.4 10^3/ul Lymphocytes # 2.2 10^3/ul Monocytes # 0.3 10^3/ul Eosinophils # 0.3 10^3/ul Basophils # 0.0 10^3/ul Nucleated Red Blood Cells # 0.0 10^3/ul Prothrombin Time 11.3 Sec Prothrombin Time Ratio 0.9 INR International Normalized Ratio 0.81 Sodium Level 139 mmol/L Potassium Level 3.8 mmol/L Chloride Level 107 mmol/L Carbon Dioxide Level 24 mmol/L Anion Gap 8 Blood Urea Nitrogen 7 mg/dl Creatinine 0.58 mg/dl Est Glomerular Filtrat Rate mL/min > 60 mL/min Glucose Level 113 mg/dl Calcium Level 9.2 mg/dl Total Bilirubin 0.5 mg/dl Direct Bilirubin 0.00 mg/dl Indirect Bilirubin 0.5 mg/dl Aspartate Amino Transf (AST/SGOT) 28 IU/L Alanine Aminotransferase (ALT/SGPT) 26 IU/L Alkaline Phosphatase 166 IU/L Total Protein 6.9 g/dl Albumin 3.5 g/dl Globulin 3.40 g/dl Albumin/Globulin Ratio 1.02 Current Medications Medications Dose Sig/Asim Start Time Status Last (Trade) Ordered Route PRN Stop Time Admin Dose Reason Admin Sodium 1,000 ml @ Q1H STAT 12/08/18 DC 12/08/18 Chloride 1,000 mls/hr IV 11:17 11:39 12/08/18 12:16 10 mg ONCE STAT 12/08/18 DC 12/08/18 Prochlorperaz IV 11:17 11:41 ine 12/08/18 11:19 (Compazine Inj) Ketorolac 30 mg ONCE STAT 12/08/18 DC 12/08/18 Tromethamine IV 11:17 11:41 (Toradol) 12/08/18 11:19 25 mg ONCE STAT 12/08/18 DC 12/08/18 Diphenhydrami IV 11:17 11:42 ne HCl 12/08/18 11:19 (Benadryl) Procedures/MDM This is a 23-year-old female who presents for evaluation of headache. Headache is that is a tension-like, I suspect most likely primary headache, versus a post epidural headache. However she has had a blood patch placed already, other consideration is eclampsia, she has no neurologic deficits, and her labs were all unremarkable, at this this is less likely. Have much lower suspicion for an emergent cause of headache such as meningitis or subarachnoid hemorrhage, given history and presentation. 1:11 PM: Patient symptoms have significantly improved, she states that she would like to go home, I discussed return precautions with her including worsening headache, fever or any other concerns, at discharge she was in no distress. Departure Diagnosis: Primary Impression: Headache Headache type: unspecified Headache chronicity pattern: acute headache Intractability: not intractable Qualified Codes: R51 - Headache Condition: Stable ROJELIO GARDINER MD Dec 08, 2018 12:39
[2018-12-08 13:16] VITALS: BP 113/80; PULSE 70; RESP 20
[2018-12-08] MEDS ORDERED: OXYC-279 PO (22:20)
[2018-12-08] MEDS ORDERED: IBUP-1542 PO (22:20)
[2018-12-08] MEDS ORDERED: NITR-58 PO (22:20)
== END 2018-12-08 13:18 | disposition home or self-care (01) ==
LOC: E/R 11:10
DX: O90.89 Other complications of the puerperium, not elsewhere classified (principal); R51 Headache
CPT/HCPCS: 80053; 85025; 85610; 96361; 96374; 96375; 99284; J0780; J1200; J1885; J7030

== ENCOUNTER 2018-12-08 21:05 | Emergency (ER) | payer BC, MEDICAID ==
[~2018-12-08] VITALS: Ht 162.6 cm; Wt 68.3 kg
[2018-12-08 21:08] VITALS: Ht 162.6 cm; Wt 68.3 kg
[2018-12-08] MEDS ORDERED: ONDANSETRON 4 MG INJ IV STA (21:36)
[2018-12-08] MEDS ORDERED: KETOROLAC 15 MG INJ IV STA (21:36)
[2018-12-08] MEDS ORDERED: SOD CHLORIDE 0.9% 1,000 ML IV STA (21:36)
[2018-12-08] MEDS ORDERED: OXYCODONE/ACETAMINOPHEN (5/325) TAB PO ONE (22:00)
--- NOTE | 2018-12-08 22:18 | ERD ---
ER Documentation Chief Complaint Chief Complaint headache 02/27, s/p epidural @12/04/18. HPI This is a 24-year-old young woman here for continued headache, she had a epidural injection about a week ago status post blood patch due to continued headache. She was seen and evaluated yesterday and work-up was unremarkable and she was discharged with a prescription for acetaminophen as she is breast- feeding her infant. She states the headache is constant, nonradiating nonexertional and daily. She has had no slurred speech, no dizziness, no loss of consciousness, no chest pain or shortness of breath. Patient does complain of urinary frequency and states UA was not checked yesterday. ROS All systems reviewed and are negative except as per history of present illness. Medications Home Meds Active Scripts Oxycodone HCl/Acetaminophen (Percocet 5-325 mg Tablet) 1 Each Tablet, 1 EACH PO TID, #9 TAB Prov:ROJELIO CURRY MD 12/08/18 Ibuprofen* (Motrin*) 600 Mg Tab, 600 MG PO Q8 PRN for PAIN AND/OR INFLAMMATION, #30 TAB Prov:ROJELIO CURRY MD 12/08/18 Nitrofurantoin Monohyd Macrocr* (Macrobid*) 100 Mg Capsr, 100 MG PO BID for 14 Days, CAP Prov:ROJELIO CURRY MD 12/08/18 Vit No.124/Iron/FA ( Vitamin Tablet) 1 Each Tablet, 1 EACH PO DAILY, #30 TAB Prov:JAIME ANDRADE 11/18/18 Reported Medications Ursodiol* (Ursodiol*) 300 Mg Capsule, 300 MG PO TID, CAP 11/19/18 Discontinued Reported Medications Ferrous Sulfate* (Ferrous Sulfate*) 325 Mg Tabec, 325 MG PO DAILY, TAB 10/19/18 Discontinued Scripts Acetaminophen* (Tylophen*) 500 Mg Capsule, 1 CAP PO Q6H PRN for PAIN AND OR ELEVATED TEMP, #20 CAP Prov:JAIME ANDRADE 11/18/18 Diphenhydramine Hcl* (Benadryl*) 25 Mg Cap, 25 MG PO Q6 PRN for ITCHING/RASH, #30 TAB Prov:JAIME ANDRADE 11/18/18 Vit No.130/Iron/FA ( Tablet) 1 Each Tablet, 1 TAB PO DAILY, #30 TAB 6 Refills Prov:MECCA LEVIN 07/16/18 Allergies Allergies: Coded Allergies: cephalexin (Verified Allergy, Intermediate, HIVES, 12/08/18) PMhx/Soc None Medical and Surgical Hx: pt denies Surgical Hx History of Surgery: No Anesthesia Reaction: No Hx Neurological Disorder: No Hx Respiratory Disorders: No Hx Cardiac Disorders: No Hx Psychiatric Problems: Yes (Anxiety) Hx Miscellaneous Medical Probl: No Hx Alcohol Use: No Hx Substance Use: No Hx Tobacco Use: No Smoking Status: Never smoker FmHx Family History: No diabetes Physical Exam Vitals Vital Signs Date Temp Pulse Resp B/P (MAP) Pulse Ox O2 O2 Flow FiO2 Time Delivery Rate 12/08/18 68 18 127/92 100 Room Air 22:40 (104) 12/08/18 96.2 67 16 115/71 96 21:08 (86) Physical Exam GENERAL: Well-developed, well-nourished, well-hydrated, in no apparent distress, looks nontoxic in appearance HEENT: Moist mucous membranes, pink conjunctiva, no cervical spine tenderness or step-off deformities, no goiter, no jaundice or icterus, extraocular movements intact without pain. No submandibular induration, and no pharyngeal erythema NEURO: Alert and oriented 3, cranial nerves II through XII intact bilaterally, pupils equal round reactive to light, no focal deficits or facial asymmetry, sensation intact distally Strength 5/5 in upper and lower extremities kajal aterally CARDIAC: Regular rate and rhythm, no murmurs rubs or gallops LUNGS: Clear bilaterally no wheezing crackles or stridor ABDOMEN: Soft nontender, no guarding, no rigidity, no rebound, no psoas sign no obturator sign. Normoactive bowel sounds Result Diagram: 12/08/18214212/08/182142 Results 24 hrs Laboratory Tests Test 12/08/18 21:31 12/08/18 21:43 Urine Color YELLOW Urine Clarity SLIGHTLY CLOUDY Urine pH 7.0 Urine Specific [place] 1.025 Urine Ketones TRACE mg/dL Urine Nitrite NEGATIVE mg/dL Urine Bilirubin NEGATIVE mg/dL Urine Urobilinogen NEGATIVE mg/dL Urine Leukocyte Esterase 2+ Janae/ul Urine Microscopic RBC 34 /HPF Urine Microscopic WBC 13 /HPF Urine Squamous Epithelial Cells FEW /HPF Urine Bacteria MODERATE /HPF Urine Mucus FEW /HPF Urine Hemoglobin 3+ mg/dL Urine Glucose NEGATIVE mg/dL Urine Total Protein 1+ mg/dl White Blood Count 9.8 10^3/ul Red Blood Count 3.74 10^6/ul Hemoglobin 11.7 g/dl Hematocrit 35.3 % Mean Corpuscular Volume 94.4 fl Mean Corpuscular Hemoglobin 31.3 pg Mean Corpuscular Hemoglobin Concent 33.1 g/dl Red Cell Distribution Width 12.4 % Platelet Count 265 10^3/UL Mean Platelet Volume 9.9 fl Immature Granulocytes % 2.900 % Neutrophils % 66.4 % Lymphocytes % 22.6 % Monocytes % 5.7 % Eosinophils % 1.9 % Basophils % 0.5 % Nucleated Red Blood Cells % 0.0 /100WBC Immature Granulocytes # 0.280 10^3/ul Neutrophils # 6.5 10^3/ul Lymphocytes # 2.2 10^3/ul Monocytes # 0.6 10^3/ul Eosinophils # 0.2 10^3/ul Basophils # 0.1 10^3/ul Nucleated Red Blood Cells # 0.0 10^3/ul Sodium Level 140 mmol/L Potassium Level 3.7 mmol/L Chloride Level 109 mmol/L Carbon Dioxide Level 22 mmol/L Anion Gap 9 Blood Urea Nitrogen 8 mg/dl Creatinine 0.61 mg/dl Est Glomerular Filtrat Rate mL/min > 60 mL/min Glucose Level 124 mg/dl Calcium Level 8.6 mg/dl Current Medications Medications Dose Sig/Asim Start Time Status Last (Trade) Ordered Route PRN Stop Time Admin Dose Reason Admin Oxycodone/ 1 tab ONCE ONCE 12/08/18 DC 12/08/18 Acetaminophen PO 22:00 22:10 (Percocet 12/08/18 22:01 (5/ 325)) Sodium 1,000 ml @ Q1H STAT 12/08/18 DC 12/08/18 Chloride 1,000 mls/hr IV 21:36 21:41 12/08/18 22:35 Ondansetron 4 mg ONCE STAT 12/08/18 DC 12/08/18 HCl (Zofran IV 21:36 21:41 Inj) 12/08/18 21:37 Ketorolac 15 mg ONCE STAT 12/08/18 DC 12/08/18 Tromethamine IV 21:36 21:41 (Toradol) 12/08/18 21:37 Ceftriaxone 50 ml @ ONCE ONCE 12/08/18 DC 12/08/18 Sodium 100 mls/hr IVPB 22:30 22:35 12/08/18 22:49 Procedures/MDM IV line was established patient was placed on bus monitor rhythm strip revealed a sinus rhythm at about 80 bpm with upright P and T waves. Patient was afebrile I administered 1 L normal saline IV, Toradol 15 mg IV, Zofran 4 mg IV, Percocet 1 tablet p.o. Urinalysis was positive for infection I treated her here with ceftriaxone 1 g IV CBC and electrolytes were unremarkable I reviewed the patient's recent imaging studies. Her headache completely resolved and vital signs remain normal, she will be discharged with antibiotics and prescription analgesia. Differential diagnoses considered, included but not limited to acute coronary syndrome, pulmonary embolism, aortic dissection, abdominal aortic aneurysm, sepsis, stroke, meningitis, encephalitis, pneumonia, appendicitis, cholecyst itis, bowel obstruction, pyelonephritis, nephrolithiasis, cystitis, as well as metabolic, hematologic, and electrolyte abnormalities. As well as abscess, cellulitis, fractures, and dislocations. Patient feels much better at this time, and vital signs are normal, symptoms have improved. I did give strict instructions to return to the ED if symptoms continue or worsen, patient will otherwise follow-up with primary care physician. Patient understood instructions and agreed to plan. Disclaimer: Inadvertent spelling and grammatical errors are likely due to EHR/dictation software use and do not reflect on the overall quality of patient care. Also, please note that the electronic time recorded on this note does not necessarily reflect the actual time of the patient encounter. Departure Diagnosis: Primary Impression: Acute headache Headache type: tension-type Intractability: not intractable Qualified Codes: G44.209 - Tension-type headache, unspecified, not intractable Additional Impression: Acute UTI Condition: Good ROJELIO CURRY MD Dec 08, 2018 22:18
[2018-12-08] MEDS ORDERED: IBUP-1542 PO (22:20)
[2018-12-08] MEDS ORDERED: NITR-58 PO (22:20)
[2018-12-08] MEDS ORDERED: OXYC-279 PO (22:20)
[2018-12-08] MEDS ORDERED: CEFTRIAXONE 1 GM/50 ML (PMX) 50 ML IVPB ONE (22:30)
[2018-12-08 22:40] VITALS: BP 127/92; PULSE 68; RESP 18
== END 2018-12-08 22:48 | disposition home or self-care (01) ==
LOC: E/R 21:05
DX: G44.209 Tension-type headache, unspecified, not intractable (principal); N39.0 Urinary tract infection, site not specified
CPT/HCPCS: 36415; 80048; 81001; 85025; 96361; 96374; 96375; 99284; J0696; J1885; J2405; J7030

== ENCOUNTER 2018-12-12 15:31 | Emergency (ER) | payer BC, MEDICAID ==
[~2018-12-12] VITALS: Ht 157.5 cm; Wt 64.5 kg
[~2018-12-12 15:31] MED LIST changes: +IBUP-1542 PO; +NITR-58 PO; +OXYC-279 PO
[2018-12-12 15:36] VITALS: Ht 157.5 cm; Wt 64.5 kg
[2018-12-12] MEDS ORDERED: SOD CHLORIDE 0.9% 1,000 ML IV STA (17:36)
--- NOTE | 2018-12-12 18:53 | ERD ---
ER Documentation Chief Complaint Chief Complaint pt's been having headaches since her delivery date. sent from her clinic HPI 23-year-old G1, P1 female just gave on December [address] Dallas with complaint of headache. States that she had a post epidural headache when she was here in the hospital after her delivery due to a laceration of the epidural area and subsequent CSF leakage. States that she had a blood patch performed then and her doctor told her that she would need to get another one done within 7 days. She states that this would need to be done by an anesthesiologist. CT was performed after delivery because of her headache and results were within normal limits. In addition patient states she is a history of cholestasis has been having some mild upper right quadrant pain and would like an ultrasound performed. Patient denies any vision problems, numbness, weakness, focal neurological deficits, vertigo, fevers, chills. ROS All systems reviewed and are negative except as per history of present illness. Medications Home Meds Active Scripts Oxycodone HCl/Acetaminophen (Percocet 5-325 mg Tablet) 1 Each Tablet, 1 EACH PO TID, #9 TAB Prov:ROJELIO CURRY MD 12/08/18 Ibuprofen* (Motrin*) 600 Mg Tab, 600 MG PO Q8 PRN for PAIN AND/OR INFLAMMATION, #30 TAB Prov:ROJELIO CURRY MD 12/08/18 Nitrofurantoin Monohyd Macrocr* (Macrobid*) 100 Mg Capsr, 100 MG PO BID for 14 Days, CAP Prov:ROJELIO CURRY MD 12/08/18 Vit No.124/Iron/FA ( Vitamin Tablet) 1 Each Tablet, 1 EACH PO DAILY, #30 TAB Prov:JAIME ANDRADE 11/18/18 Reported Medications Ursodiol* (Ursodiol*) 300 Mg Capsule, 300 MG PO TID, CAP 11/19/18 Discontinued Reported Medications Ferrous Sulfate* (Ferrous Sulfate*) 325 Mg Tabec, 325 MG PO DAILY, TAB 10/19/18 Allergies Allergies: Coded Allergies: cephalexin (Verified Allergy, Intermediate, HIVES, 12/08/18) PMhx/Soc History of Surgery: No Anesthesia Reaction: No Hx Neurological Disorder: No Hx Respiratory Disorders: No Hx Cardiac Disorders: No Hx Psychiatric Problems: Yes (Anxiety) Hx Miscellaneous Medical Probl: Yes (p blood patch for continued [place] p epidural) Hx Alcohol Use: No Hx Substance Use: No Hx Tobacco Use: No Smoking Status: Never smoker FmHx Family History: No diabetes, No coronary disease, No other Physical Exam Vitals Vital Signs Date Temp Pulse Resp B/P (MAP) Pulse Ox O2 O2 Flow FiO2 Time Delivery Rate 12/12/18 98.2 86 18 110/78 97 15:36 (89) Physical Exam Const: No acute distress Head: Atraumatic Eyes: Normal Conjunctiva ENT: Normal External Ears, Nose and Mouth. Neck: Full range of motion. No meningismus. Resp: Clear to auscultation bilaterally Cardio: Regular rate and rhythm, no murmurs Abd: Soft, non tender, non distended. Normal bowel sounds Skin: No petechiae or rashes Back: No midline or flank tenderness Ext: No cyanosis, or edema Neur: Awake and alert Psych: Normal Mood and Affect Neuro: M/S: Alert and oriented Face: EOMI, face and pharynx with normal sensation and function Motor: Normal strength throughout Sensation: Normal sensation throughout Speech: Normal Cerebel: Normal coordination Normal gait Normal finger to nose DTR: 2+ and symmetric upper/lower extremities Result Diagram: 12/12/18 1750 12/12/18 175 Results 24 hrs Laboratory Tests Test 12/12/18 17:50 White Blood Count 10.6 10^3/ul Red Blood Count 4.62 10^6/ul Hemoglobin 14.5 g/dl Hematocrit 44.1 % Mean Corpuscular Volume 95.5 fl Mean Corpuscular Hemoglobin 31.4 pg Mean Corpuscular Hemoglobin Concent 32.9 g/dl Red Cell Distribution Width 12.3 % Platelet Count 386 10^3/UL Mean Platelet Volume 9.6 fl Immature Granulocytes % 2.600 % Neutrophils % 58.7 % Lymphocytes % 28.9 % Monocytes % 6.5 % Eosinophils % 2.6 % Basophils % 0.7 % Nucleated Red Blood Cells % 0.0 /100WBC Immature Granulocytes # 0.270 10^3/ul Neutrophils # 6.2 10^3/ul Lymphocytes # 3.1 10^3/ul Monocytes # 0.7 10^3/ul Eosinophils # 0.3 10^3/ul Basophils # 0.1 10^3/ul Nucleated Red Blood Cells # 0.0 10^3/ul Sodium Level 144 mmol/L Potassium Level 4.2 mmol/L Chloride Level 111 mmol/L Carbon Dioxide Level 22 mmol/L Anion Gap 11 Blood Urea Nitrogen 15 mg/dl Creatinine 0.82 mg/dl Est Glomerular Filtrat Rate mL/min > 60 mL/min Glucose Level 92 mg/dl Calcium Level 9.4 mg/dl Total Bilirubin 0.3 mg/dl Direct Bilirubin 0.00 mg/dl Indirect Bilirubin 0.3 mg/dl Aspartate Amino Transf (AST/SGOT) 20 IU/L Alanine Aminotransferase (ALT/SGPT) 21 IU/L Alkaline Phosphatase 149 IU/L Total Protein 7.6 g/dl Albumin 3.8 g/dl Globulin 3.80 g/dl Albumin/Globulin Ratio 1.00 Current Medications Medications Dose Sig/Asim Start Time Status Last (Trade) Ordered Route PRN Stop Time Admin Dose Reason Admin Sodium 1,000 ml @ Q1H STAT 12/12/18 DC 12/12/18 Chloride 1,000 mls/hr IV 17:36 17:49 12/12/18 18:35 Procedures/MDM DIAGNOSTIC IMAGING REPORT Patient: STEFANIE SEN : 1995 Age: 23 Sex: F MR #: [id number] DOS: 12/12/18 1736 Ordering MD: KAMLESH MUELLER Location: [facility] Room/Bed: PROCEDURE: US Abdomen. CLINICAL INDICATION: abdominal pain TECHNIQUE: Multiple real-time images were acquired of the patient's right upper quadrant abdomen and retroperitoneum utilizing a high resolution transducer. COMPARISON: None FINDINGS: The liver demonstrates normal echogenicity. The liver is normal in size and no focal solid lesions are seen. The liver measures 14.5 cm in length. The portal vein is patent with normal direction of flow. No intrahepatic biliary dilatation is seen. The gallbladder is contracted. There is a 9 mm nonmobile lobulated echogenic structure within the gallbladder, suspicious for a polyp. There is no pericholecystic fluid or gallbladder wall thickening. The common bile duct measures 2 mm in maximal dimension. The visualized portions of the pancreas are unremarkable. The tail of the pancreas is not seen. No free fluid is identified. The right kidney is normal in size, and demonstrate normal echogenicity and c ortical thickness. The right kidney measures 12.1 cm in long dimension. There is no evidence of hydronephrosis. There are no kidney stones. RPTAT: AA IMPRESSION: 9 mm probable polyp within the gallbladder. Otherwise unremarkable. .Josesito Phillips MD, Date Time Electronically viewed and signed by .Josesito Phillips MD, MD on 12/12/2018 18:38 .S/ CC: KAMLESH MUELLER [phone] MDM: I discussed case with supervising physician Dr. Mackey he stated that he would be in touch with anesthesiology to see if they could do the blood patch in the ER. He also states there is no need for CT at this time which I concur with given patient's previous negative CT, lack of focal neurological deficits, and patient history of post epidural headache. Dr. Mackey was able to get a hold of anesthesiology and he stated that he would not be able to come to the patch in the ER until 1 AM, however patient could be admitted for pain control and have the patch on the next day, alternatively she could be discharged and come back in the morning. We discussed the pros and cons of each, and patient decided she would rather be admitted. Patient refused pain medication during the ER course. Patient given IV fluids. In addition, patient's ultrasound results within normal limits. I have low suspicion for intracranial hemorrhage, elevated intracranial pressure, intracranial mass, aneurysm, meningitis, malignant hypertension, giant cell arteritis, carotid dissection, intracranial abscess, cerebral venous thrombosis, CO2 poisoning, or other emergent causes of headache based on patients history and exam. In addition, low suspicion for cholelithiasis, cholecystitis, ascending cholangitis, biliary duct obstruction. Patient currently being admitted by Dr Mackey. Departure Diagnosis: Primary Impression: Headache Condition: Stable KAMLESH MUELLER Dec 12, 2018 18:53
--- NOTE | 2018-12-12 19:57 | EN ---
Date/Time of Note Date/Time of Note DATE: 12/12/18 TIME: 19:55 ER Progress Note I have discussed the patient along with the PA and/or C[employer] P[employer]TER provider. I agree with the evaluation and plan of care. Please see their documentation for full ER course and evaluation. In short: Patient is suffering from post epidural headache. The patient was sent to the emergency room by her FIRE INVESTIGATOR for repeat patch Assessment and plan: I discussed the case with both surgical anesthesiologist and OB anesthesiologist. Both are very busy this evening. They cannot see the patient in the emergency room. We discussed inpatient versus outpatient management. The patient prefers not to go home. The patient will be admitted for observation status to receive a blood patch with anesthesia consult. Primary FIRE INVESTIGATOR states no OBG YM issues. The patient can be admitted to the medical team. Accepting care team and consultations: I discussed the current laboratory data, diagnostic imaging and emergency care provided. Admitting team: Dr. Bowers Admitting team indication: Insurance directed RANDY MOSER MD Dec 12, 2018 19:57
[2018-12-12] MEDS ORDERED: IBUPROFEN 600 MG TAB PO ONE (20:00)
[2018-12-12] MEDS ORDERED: ONDANSETRON 4 MG INJ IV PRN (20:00)
[2018-12-12] MEDS ORDERED: ACETAMINOPHEN 325 MG TAB PO PRN (20:00)
--- NOTE | 2018-12-12 20:10 | PREAC ---
Date/Time of Note Date/Time of Note DATE: 12/12/18 TIME: 20:09 Anesthesia Eval and Record Evaluation Time Pre-Procedure Interview DATE: 12/12/18 TIME: 20:09 Age 23 Sex female NPO: 8 hrs Preoperative diagnosis PDPH Planned procedure Blood patch Past Medical History Past Medical History: None Surgery & Anesthesia Issues No known issue Meds Anticoagulation: No Beta Ruby within 24 hr: No Reason Beta Ruby not given: Pt. not on B-Ruby Active Scripts Oxycodone HCl/Acetaminophen (Percocet 5-325 mg Tablet) 1 Each Tablet, 1 EACH PO TID, #9 TAB Prov:ROJELIO CURRY MD 12/08/18 Ibuprofen* (Motrin*) 600 Mg Tab, 600 MG PO Q8 PRN for PAIN AND/OR INFLAMMATION, #30 TAB Prov:ROJELIO CURRY MD 12/08/18 Nitrofurantoin Monohyd Macrocr* (Macrobid*) 100 Mg Capsr, 100 MG PO BID for 14 Days, CAP Prov:ROJELIO CURRY MD 12/08/18 Vit No.124/Iron/FA ( Vitamin Tablet) 1 Each Tablet, 1 EACH PO DAILY, #30 TAB Prov:JAIME ANDRADE 11/18/18 Reported Medications Ursodiol* (Ursodiol*) 300 Mg Capsule, 300 MG PO TID, CAP 11/19/18 Discontinued Reported Medications Ferrous Sulfate* (Ferrous Sulfate*) 325 Mg Tabec, 325 MG PO DAILY, TAB 10/19/18 Current Medications Ondansetron HCl (Zofran Inj) 4 mg BRIDGE ORDER PRN IV NAUSEA/VOMITING; Start 12/12/18 at 20:00; Stop 12/13/18 at 19:59 Acetaminophen (Tylenol Tab) 650 mg ER BRIDGE PRN PO .MILD PAIN 1-3 OR TEMP; Start 12/12/18 at 20:00; Stop 12/13/18 at 19:59 Meds reviewed: Yes Allergies Coded Allergies: cephalexin (Verified Allergy, Intermediate, HIVES, 12/08/18) Allergies Reviewed: Yes Labs/Studies Labs Reviewed: Reviewed by anesthesiologist Result Diagram: 12/12/18 1750 12/12/18 1750 Laboratory Tests 12/12/18 17:50 test: Negative Studies: ECG (n/a), CXR (n/a) Pre-procedure Exam Last vitals Vital Signs Date Temp Pulse Resp B/P (MAP) Pulse Ox O2 O2 Flow FiO2 Time Delivery Rate 12/12/18 98.5 62 16 132/94 97 Room Air 19:41 (107) Airway: Adequate mouth opening Mallampati: Mallampati I Teeth: Normal Lung: Normal Heart: Normal ASA Physical Status ASA physical status: 1 Emergency: None Planned Anesthetic Neuraxial: Epidural Pre-operative Attestations Prior to commencing anesthesia and surgery, the patient was re-evaluated, there was verification of: *The patient's identity *The results of appropriate recent lab work and preoperative vital signs *The above evaluation not changing prior to induction *Anesthetic plan, risk benefits, alternative and complications discussed with patient/family; questions answered; patient/family understands, accepts and wishes to proceed. GOOD ZIMMERMAN MD Dec 12, 2018 20:10
[2018-12-12 21:50] VITALS: BP 138/99; PULSE 64; RESP 16
--- NOTE | 2018-12-13 08:27 | PAC ---
Date/Time of Note Date/Time of Note DATE: 12/13/18 TIME: 08:27 Post-Anesthesia Notes Post-Anesthesia Note Last documented vital signs Vital Signs Date Temp Pulse Resp B/P (MAP) Pulse Ox O2 O2 Flow FiO2 Time Delivery Rate 12/12/18 98.0 64 16 138/99 99 Room Air 21:50 (112) Activity: WNL Respiratory function: WNL Cardiovascular function: WNL Mental status: Baseline Pain reasonably controlled: Yes Hydration appropriate: Yes Nausea/Vomiting absent: No GOOD ZIMMERMAN MD Dec 13, 2018 08:27
== END 2018-12-12 21:51 | disposition home or self-care (01) ==
LOC: FTE 15:31 → E/R 21:51
DX: R51 Headache (principal); R40.2142 Coma scale, eyes open, spontaneous, at arrival to emergency department; R40.2362 Coma scale, best motor response, obeys commands, at arrival to emergency department; R40.2252 Coma scale, best verbal response, oriented, at arrival to emergency department
CPT/HCPCS: 76705; 80053; 81001; 85025; 96360; 96361; 99285; J7030

== ENCOUNTER → 2019-01-21 | Outpatient (CLI) | payer BC | END | disposition home or self-care (01) | LOC: LAB 10:12 | PROVIDERS: ATTEND Internal Medicine | DX: D64.9 Anemia, unspecified (principal); R31.9 Hematuria, unspecified | CPT/HCPCS: 80053; 80061; 81001; 84436; 84443; 85025 ==